=== PATIENT | female | born 1965 | race Hispanic/Latino ===

== ENCOUNTER 2017-11-19 21:31 | Emergency (ER) | payer BC, MEDICAID ==
[2017-11-19] MEDS ORDERED: PHENAZOPYRIDINE HCL 200 MG TABLET ONE (21:59)
[2017-11-19 22:03] LABS: BILIRUBIN,URINE NEGATIVE (NEGATIVE); GLUCOSE, URINE (UA) NEGATIVE (NEGATIVE); KETONES,URINE NEGATIVE (NEGATIVE); LEUKOCYTE ESTERASE ,URINE SMALL (NEGATIVE); NITRATE,URINE NEGATIVE (NEGATIVE); OCCULT BLOOD,URINE LARGE (NEGATIVE); PH,URINE 5.5 (5.0-8.0); PROTEIN,URINE 100 (NEGATIVE); UROBILINOGEN,URINE 0.2 mg/dL (0.2-1.0)
[2017-11-19 22:04] LABS: APPEARANCE,URINE TURBID (CLEAR); COLOR,URINE RED (YELLOW)
[2017-11-19 22:09] LABS: RBC,URINE TNTC /HPF (0-1)
[2017-11-19 22:10] LABS: BACTERIA,URINE Rare /HPF (None Seen); SQUAMOUS EPITHELIAL CELL,UR Rare /LPF (0-2)
[2017-11-19] MEDS ORDERED: CEFTRIAXONE SODIUM 1 GM ONE (22:21)
[2017-11-19] MEDS ORDERED: LIDOCAINE HCL-MPF 1% 2ML VIAL ONE (22:21)
== END 2017-11-19 22:49 | disposition home or self-care (01) ==
LOC: EDH 21:31
DX: N39.0 Urinary tract infection, site not specified (principal); F32.9 Major depressive disorder, single episode, unspecified; I10 Essential (primary) hypertension; E78.5 Hyperlipidemia, unspecified; Z98.890 Other specified postprocedural states
CPT/HCPCS: 81001; 96372; 99283; J0696; J3490

== ENCOUNTER → 2018-07-19 | Outpatient (CLI) | payer BC, MEDICAID | END | disposition home or self-care (01) | LOC: SLP 19:01 | DX: G47.30 Sleep apnea, unspecified (principal) | CPT/HCPCS: 95811 ==

== ENCOUNTER 2018-08-23 17:24 | Emergency (ER) | payer BC, MEDICAID ==
[2018-08-23] MEDS ORDERED: HYOSCYAMINE SULFATE 0.125 MG TAB.SUBL SL ONE (18:21)
[2018-08-23 18:26] LABS: BASOPHILS % (AUTO) 0.4 % (0.0-5.0); EOSINOPHILS % (AUTO) 0.1 % (0.0-8.0); LYMPHOCYTES % (AUTO) 14.7 % (21.0-51.0); MEAN CORPUSCULAR HEMOGLOBIN 32.4 pg (27.0-33.0); MEAN CORPUSCULAR HGB CONC 33.6 g/dL (32.0-36.0); MEAN CORPUSCULAR VOLUME 96.3 fL (79-99); MONOCYTES % (AUTO) 4.7 % (3.0-13.0); NEUTROPHILS % (AUTO) 80.1 % (40.0-77.0); PLATELET COUNT (AUTO) 229 K/uL (130-400); RED BLOOD CELL COUNT(AUTO) 4.15 MIL/uL (4.00-5.50); RED CELL DISTRIBUTION WIDTH 13.5 % (11.0-15.5); WHITE BLOOD COUNT (AUTO) 11.9 K/uL (4.8-10.8)
[2018-08-23 18:29] LABS: APPEARANCE,URINE Clear (CLEAR); BILIRUBIN,URINE Negative (NEGATIVE); COLOR,URINE Yellow (YELLOW); GLUCOSE, URINE (UA) Negative (NEGATIVE); KETONES,URINE Trace mg/dL (NEGATIVE); LEUKOCYTE ESTERASE ,URINE Negative (NEGATIVE); NITRATE,URINE Negative (NEGATIVE); OCCULT BLOOD,URINE Small (NEGATIVE); PH,URINE 5.5 (5.0-8.0); PROTEIN,URINE Trace (NEGATIVE); UROBILINOGEN,URINE 0.2 mg/dL (0.2-1.0)
[2018-08-23 18:37] LABS: AMPHET/METH SCREEN,URINE NEGATIVE (NEGATIVE); BARBITURATE SCREEN, URINE NEGATIVE (NEGATIVE); BENZODIAZEPINES SCREEN,URINE NEGATIVE (NEGATIVE); CANNABINOID SCREEN,URINE NEGATIVE (NEGATIVE); COCAINE SCREEN,URINE NEGATIVE (NEGATIVE); OPIATE SCREEN,URINE NEGATIVE (NEGATIVE); PHENCYCLIDINE SCREEN,URINE NEGATIVE (NEGATIVE)
[2018-08-23 18:38] LABS: CREATININE 0.9 mg/dL (0.5-1.5); POTASSIUM 3.4 mmol/L (3.5-5.1)
[2018-08-23 18:42] LABS: ALBUMIN 3.5 g/dL (3.5-5.0); BILIRUBIN,TOTAL 0.5 mg/dL (0.2-1.0); TOTAL PROTEIN, SERUM 8.2 g/dL (6.0-8.3)
[2018-08-23 18:52] LABS: BACTERIA,URINE Rare /HPF (None Seen); RBC,URINE 0-1 /HPF (0-1); SQUAMOUS EPITHELIAL CELL,UR Rare /HPF (0-2)
[2018-08-23] MEDS ORDERED: LEVOFLOXACIN 500 MG TABLET ONE (18:58)
== END 2018-08-23 19:36 | disposition home or self-care (01) ==
LOC: EDH 17:24
DX: A09 Infectious gastroenteritis and colitis, unspecified (principal); M25.561 Pain in right knee; M25.562 Pain in left knee; F41.9 Anxiety disorder, unspecified; F32.9 Major depressive disorder, single episode, unspecified; E78.5 Hyperlipidemia, unspecified; I10 Essential (primary) hypertension; H92.09 Otalgia, unspecified ear; Z88.6 Allergy status to analgesic agent
CPT/HCPCS: 36415; 73562; 80053; 80305; 81001; 82150; 82270; 83630; 83690; 85025; 87046

== ENCOUNTER 2019-02-25 19:33 | Emergency (ER) | payer BC, MEDICAID ==
[2019-02-25 20:23] LABS: BASOPHILS % (AUTO) 0.7 % (0.0-5.0); EOSINOPHILS % (AUTO) 1.1 % (0.0-8.0); HEMATOCRIT 33.7 % (36-48); LYMPHOCYTES % (AUTO) 44.1 % (21.0-51.0); MEAN CORPUSCULAR HEMOGLOBIN 33.5 pg (27.0-33.0); MEAN CORPUSCULAR HGB CONC 34.9 g/dL (32.0-36.0); MEAN CORPUSCULAR VOLUME 95.8 fL (79-99); MONOCYTES % (AUTO) 14.4 % (3.0-13.0); NEUTROPHILS % (AUTO) 39.7 % (40.0-77.0); NUCLEATED RED BLOOD CELLS 0.2 % (0.0-0.19); PLATELET COUNT (AUTO) 256 K/uL (130-400); RED BLOOD CELL COUNT(AUTO) 3.52 MIL/uL (4.00-5.50); RED CELL DISTRIBUTION WIDTH 12.9 % (11.0-15.5); WHITE BLOOD COUNT (AUTO) 5.5 K/uL (4.8-10.8)
[2019-02-25 20:31] LABS: APPEARANCE,URINE Clear (CLEAR); BILIRUBIN,URINE Negative (NEGATIVE); COLOR,URINE Yellow (YELLOW); GLUCOSE, URINE (UA) Negative (NEGATIVE); KETONES,URINE Negative (NEGATIVE); LEUKOCYTE ESTERASE ,URINE Moderate (NEGATIVE); NITRATE,URINE Negative (NEGATIVE); OCCULT BLOOD,URINE Trace (NEGATIVE); PROTEIN,URINE Negative (NEGATIVE)
[2019-02-25 20:38] LABS: CREATININE 0.8 mg/dL (0.5-1.5); POTASSIUM 3.5 mmol/L (3.5-5.1)
[2019-02-25 20:40] LABS: INR 0.9 (0.85-1.15); PARTIAL THROMBOPLASTIN TIME 24.5 SEC (26.3-35.5); PROTHROMBIN TIME 9.5 SEC (9.6-11.6)
[2019-02-25 20:48] LABS: ALBUMIN 3.6 g/dL (3.5-5.0); BILIRUBIN,TOTAL 0.2 mg/dL (0.2-1.0); TOTAL PROTEIN, SERUM 7.3 g/dL (6.0-8.3)
[2019-02-25] MEDS ORDERED: LIDOCAINE 5% TOPICAL PATCH TP ONE (20:51)
[2019-02-25 21:02] LABS: RBC,URINE 0-1 /HPF (0-1)
[2019-02-25 21:03] LABS: BACTERIA,URINE Rare /HPF (None Seen); SQUAMOUS EPITHELIAL CELL,UR Few /HPF (0-2); TRANSITIONAL EPI CELLS,URINE Rare /HPF (None Seen)
[2019-02-25] MEDS ORDERED: SUCRALFATE 1 GM TABLET ONE (21:58)
[2019-02-25] MEDS ORDERED: FAMOTIDINE/PF 20 MG/2 ML VIAL IV ONE (21:58)
== END 2019-02-25 23:43 | disposition home or self-care (01) ==
LOC: EDH 19:33
DX: R07.89 Other chest pain (principal); R06.02 Shortness of breath; E78.5 Hyperlipidemia, unspecified; F41.9 Anxiety disorder, unspecified; F32.9 Major depressive disorder, single episode, unspecified; Z88.6 Allergy status to analgesic agent; Z98.890 Other specified postprocedural states
CPT/HCPCS: 36415; 71045; 80053; 81001; 82550 ×2; 83874; 84484 ×2; 85025; 85378; 85610; 85730; 93005 ×2; 96374; 99285; J3490

== ENCOUNTER 2020-02-08 07:58 | Emergency (ER) | payer BC, MEDICAID ==
[2020-02-08 10:16] LABS: BASOPHILS % (AUTO) 1.1 % (0.0-5.0); EOSINOPHILS % (AUTO) 1.8 % (0.0-8.0); HEMATOCRIT 35.7 % (36-48); LYMPHOCYTES % (AUTO) 44.1 % (21.0-51.0); MEAN CORPUSCULAR HEMOGLOBIN 31.7 pg (27.0-33.0); MEAN CORPUSCULAR HGB CONC 33.1 g/dL (32.0-36.0); MONOCYTES % (AUTO) 9.3 % (3.0-13.0); NEUTROPHILS % (AUTO) 43.5 % (40.0-77.0); PLATELET COUNT (AUTO) 234 K/uL (130-400); RED BLOOD CELL COUNT(AUTO) 3.72 MIL/uL (4.00-5.50); RED CELL DISTRIBUTION WIDTH 12.8 % (11.0-15.5); WHITE BLOOD COUNT (AUTO) 5.6 K/uL (4.8-10.8)
[2020-02-08 10:29] LABS: CREATININE 0.7 mg/dL (0.5-1.5); POTASSIUM 3.5 mmol/L (3.5-5.1)
[2020-02-08 10:35] LABS: ALBUMIN 3.8 g/dL (3.5-5.0); BILIRUBIN,TOTAL 0.2 mg/dL (0.2-1.0); TOTAL PROTEIN, SERUM 7.2 g/dL (6.0-8.3)
[2020-02-08 10:47] LABS: B-TYPE NATRIURETIC PEPTIDE 10 pg/mL (0-100)
[2020-02-08 10:56] LABS: APPEARANCE,URINE Clear (CLEAR); BILIRUBIN,URINE Negative (NEGATIVE); COLOR,URINE Yellow (YELLOW); GLUCOSE, URINE (UA) Negative (NEGATIVE); KETONES,URINE Negative (NEGATIVE); LEUKOCYTE ESTERASE ,URINE Negative (NEGATIVE); NITRATE,URINE Negative (NEGATIVE); OCCULT BLOOD,URINE Negative (NEGATIVE); PH,URINE 6.5 (5.0-8.0); PROTEIN,URINE Negative (NEGATIVE); UROBILINOGEN,URINE 0.2 mg/dL (0.2-1.0)
== END 2020-02-08 12:47 | disposition home or self-care (01) ==
LOC: EDH 07:58
DX: G93.3 Postviral and related fatigue syndromes (principal); R06.2 Wheezing; J98.01 Acute bronchospasm; Z20.828 Contact with and (suspected) exposure to other viral communicable diseases; F41.9 Anxiety disorder, unspecified; F32.9 Major depressive disorder, single episode, unspecified; E78.5 Hyperlipidemia, unspecified; I10 Essential (primary) hypertension; G47.30 Sleep apnea, unspecified; Z98.890 Other specified postprocedural states; Z88.6 Allergy status to analgesic agent
CPT/HCPCS: 36415; 71045; 80053; 81003; 83880; 85025; 87635

== ENCOUNTER 2020-03-27 14:15 | Emergency (ER) | payer MEDICAID ==
[2020-03-27] MEDS ORDERED: ACETAMINOPHEN 325 MG TAB ONE (15:26)
[2020-03-27] MEDS ORDERED: ONDANSETRON ODT 4 MG TAB ONE (15:26)
== END 2020-03-27 16:16 | disposition home or self-care (01) ==
LOC: EDH 14:15
DX: S00.03XA Contusion of scalp, initial encounter (principal); R11.0 Nausea; F41.9 Anxiety disorder, unspecified; F32.9 Major depressive disorder, single episode, unspecified; I10 Essential (primary) hypertension; E78.5 Hyperlipidemia, unspecified; Z88.6 Allergy status to analgesic agent; Z98.890 Other specified postprocedural states; W18.09XA Striking against other object with subsequent fall, initial encounter; Y93.89 Activity, other specified; Y92.89 Other specified places as the place of occurrence of the external cause; Y99.8 Other external cause status
CPT/HCPCS: 70450

== ENCOUNTER 2020-04-13 16:00 | Emergency (ER) | payer MEDICAID ==
[2020-04-13] MEDS ORDERED: BISACODYL 10 MG SUPP.RECT RC ONE (17:20)
[2020-04-13] MEDS ORDERED: FAMOTIDINE 20MG TAB 20 MG TAB ONE (18:44)
[2020-04-13] MEDS ORDERED: SUCRALFATE 1 GM TABLET ONE (18:44)
[2020-04-13] MEDS ORDERED: ACETAMINOPHEN 325 MG TAB ONE (18:47)
== END 2020-04-13 23:44 | disposition home or self-care (01) ==
LOC: EDH 16:00
DX: K59.00 Constipation, unspecified (principal); K62.89 Other specified diseases of anus and rectum; F41.9 Anxiety disorder, unspecified; F32.9 Major depressive disorder, single episode, unspecified; I10 Essential (primary) hypertension; E78.5 Hyperlipidemia, unspecified; Z98.890 Other specified postprocedural states; Z88.6 Allergy status to analgesic agent

== ENCOUNTER 2020-04-26 11:56 | Emergency (ER) | payer MEDICAID ==
[2020-04-26 15:45] LABS: BASOPHILS % (AUTO) 0.3 % (0.0-5.0); HEMATOCRIT 39.7 % (36-48); LYMPHOCYTES % (AUTO) 32.5 % (21.0-51.0); MEAN CORPUSCULAR HEMOGLOBIN 32.4 pg (27.0-33.0); MEAN CORPUSCULAR HGB CONC 33.8 g/dL (32.0-36.0); MEAN CORPUSCULAR VOLUME 95.9 fL (79-99); MONOCYTES % (AUTO) 8.4 % (3.0-13.0); NEUTROPHILS % (AUTO) 58.6 % (40.0-77.0); PLATELET COUNT (AUTO) 196 K/uL (130-400); RED BLOOD CELL COUNT(AUTO) 4.14 MIL/uL (4.00-5.50); RED CELL DISTRIBUTION WIDTH 12.3 % (11.0-15.5); WHITE BLOOD COUNT (AUTO) 5.8 K/uL (4.8-10.8)
[2020-04-26 15:58] LABS: CREATININE 0.6 mg/dL (0.5-1.5); POTASSIUM 3.7 mmol/L (3.5-5.1)
[2020-04-26 16:03] LABS: ALBUMIN 3.9 g/dL (3.5-5.0); BILIRUBIN,TOTAL 0.5 mg/dL (0.2-1.0); TOTAL PROTEIN, SERUM 8.4 g/dL (6.0-8.3)
== END 2020-04-26 17:27 | disposition home or self-care (01) ==
LOC: EDH 11:56
DX: U07.1 COVID-19 (principal); J12.89 Other viral pneumonia; R05 Cough; F41.9 Anxiety disorder, unspecified; F32.9 Major depressive disorder, single episode, unspecified; E78.5 Hyperlipidemia, unspecified; I10 Essential (primary) hypertension; Z98.890 Other specified postprocedural states; Z88.6 Allergy status to analgesic agent
CPT/HCPCS: 36415; 71045; 80053; 84484; 85025; 93005; 99285; U0003

== ENCOUNTER 2020-08-09 13:52 | Emergency (ER) | payer MEDICAID ==
[2020-08-09 14:33] LABS: BASOPHILS % (AUTO) 0.9 % (0.0-5.0); EOSINOPHILS % (AUTO) 1.3 % (0.0-8.0); HEMATOCRIT 36.9 % (36-48); LYMPHOCYTES % (AUTO) 48.2 % (21.0-51.0); MEAN CORPUSCULAR HEMOGLOBIN 31.5 pg (27.0-33.0); MEAN CORPUSCULAR HGB CONC 32.8 g/dL (32.0-36.0); MEAN CORPUSCULAR VOLUME 96.1 fL (79-99); MONOCYTES % (AUTO) 10.8 % (3.0-13.0); NEUTROPHILS % (AUTO) 38.6 % (40.0-77.0); PLATELET COUNT (AUTO) 258 K/uL (130-400); RED BLOOD CELL COUNT(AUTO) 3.84 MIL/uL (4.00-5.50); RED CELL DISTRIBUTION WIDTH 12.7 % (11.0-15.5); WHITE BLOOD COUNT (AUTO) 5.6 K/uL (4.8-10.8)
[2020-08-09 14:50] LABS: CREATININE 0.6 mg/dL (0.5-1.5); POTASSIUM 3.7 mmol/L (3.5-5.1)
[2020-08-09 14:53] LABS: INR 0.92 (0.85-1.15); PARTIAL THROMBOPLASTIN TIME 24.7 SEC (26.3-35.5)
[2020-08-09 14:55] LABS: ALBUMIN 3.9 g/dL (3.5-5.0); BILIRUBIN,TOTAL 0.3 mg/dL (0.2-1.0); TOTAL PROTEIN, SERUM 7.6 g/dL (6.0-8.3)
[2020-08-09] MEDS ORDERED: MECLIZINE HCL 25 MG TABLET ONE (16:14)
[2020-08-09 16:15] LABS: APPEARANCE,URINE Clear (CLEAR); BILIRUBIN,URINE Negative (NEGATIVE); COLOR,URINE Yellow (YELLOW); GLUCOSE, URINE (UA) Negative (NEGATIVE); KETONES,URINE Negative (NEGATIVE); LEUKOCYTE ESTERASE ,URINE Negative (NEGATIVE); NITRATE,URINE Negative (NEGATIVE); OCCULT BLOOD,URINE Negative (NEGATIVE); PROTEIN,URINE Negative (NEGATIVE)
== END 2020-08-09 17:11 | disposition home or self-care (01) ==
LOC: EDH 13:52
DX: R42 Dizziness and giddiness (principal); F41.9 Anxiety disorder, unspecified; F32.9 Major depressive disorder, single episode, unspecified; E78.5 Hyperlipidemia, unspecified; I10 Essential (primary) hypertension; Z98.890 Other specified postprocedural states; Z88.6 Allergy status to analgesic agent
CPT/HCPCS: 36415; 70450; 71045; 80053; 81003; 81025; 84484; 85025; 85610; 85730; 93005

== ENCOUNTER 2020-12-04 05:30 | Observation (INO) | payer MEDICAID ==
[2020-11-29 13:15] LABS: BASOPHILS % (AUTO) 0.7 % (0.0-5.0); EOSINOPHILS % (AUTO) 1.2 % (0.0-8.0); HEMATOCRIT 40.3 % (36-48); LYMPHOCYTES % (AUTO) 45.8 % (21.0-51.0); MEAN CORPUSCULAR HEMOGLOBIN 31.9 pg (27.0-33.0); MEAN CORPUSCULAR VOLUME 96.6 fL (79-99); MONOCYTES % (AUTO) 7.7 % (3.0-13.0); NEUTROPHILS % (AUTO) 44.4 % (40.0-77.0); PLATELET COUNT (AUTO) 249 K/uL (130-400); RED BLOOD CELL COUNT(AUTO) 4.17 MIL/uL (4.00-5.50); RED CELL DISTRIBUTION WIDTH 13.4 % (11.0-15.5); WHITE BLOOD COUNT (AUTO) 6.1 K/uL (4.8-10.8)
[2020-12-03 12:01] VITALS: BP 140/77
[~2020-12-04] VITALS: Ht 149.9 cm; Wt 79.2 kg
[2020-12-04] VITALS (22 sets, daily range): BP systolic 104–142; BP diastolic 60–92
[2020-12-04] MEDS ORDERED: LACTATED RINGERS 1000ML 1,000 ML IV ONE (06:10)
[2020-12-04] MEDS: CEFAZOLIN SODIUM 1 GM VIAL ONE ×2 (06:16→08:59)
[2020-12-04] MEDS ORDERED: ATOR40TA69 PO (07:21)
[2020-12-04] MEDS ORDERED: LORA2TAB80 PO (07:21)
[2020-12-04] MEDS ORDERED: OMEP20CA12 PO (07:21)
[2020-12-04] MEDS ORDERED: LIDOCAINE PF 2% 5ML ABBOJECT ONE ×2 (07:51→07:53)
[2020-12-04] MEDS ORDERED: SUCCINYLCHOLINE CHLORIDE 20 MG/ML 10 ML VIAL ONE ×2 (07:51→07:53)
[2020-12-04] MEDS ORDERED: FENTANYL CITRATE PF 50 MCG/1 ML 2ML VIAL ONE (07:52)
[2020-12-04] MEDS ORDERED: PROPOFOL 10 MG/ML 20ML VIAL IV ONE (07:52)
[2020-12-04] MEDS ORDERED: MIDAZOLAM HCL 1 MG/ML 2ML VIAL ONE (07:52)
[2020-12-04] MEDS ORDERED: ROCURONIUM 10MG/1ML SYR 10 MG/ML ML ONE (07:52)
[2020-12-04] MEDS ORDERED: ONDANSETRON HCL 4 MG/2 ML VIAL ONE (07:52)
[2020-12-04] MEDS ORDERED: GLYCOPYRROLATE 1 MG/5 ML SYRINGE ONE (07:52)
[2020-12-04] MEDS ORDERED: NEOSTIGMINE 5MG/5ML SYR IV ONE (07:52)
[2020-12-04] MEDS ORDERED: ZINC50TA64 PO (08:01)
[2020-12-04] MEDS ORDERED: SERT-439 PO (08:01)
[2020-12-04] MEDS ORDERED: FLUT15.845 NS (08:01)
[2020-12-04] MEDS ORDERED: P-EP-642 PO (08:01)
[2020-12-04] MEDS ORDERED: PREG50 PO (08:01)
[2020-12-04] MEDS ORDERED: HYDR-4068 PO (08:01)
[2020-12-04] MEDS ORDERED: ASCO500C18 PO (08:01)
[2020-12-04] MEDS ORDERED: MONT10TA21 PO (08:01)
[2020-12-04] MEDS ORDERED: MEPERIDINE-PF 25 MG/ML SYG ONE ×3 (09:27→11:29)
[2020-12-04] MEDS ORDERED: ONDANSETRON HCL 4 MG/2 ML VIAL IVP PRN (12:45)
[2020-12-04] MEDS ORDERED: MEPERIDINE-PF 75 MG/ML SYG IM PRN (12:45)
[2020-12-04] MEDS ORDERED: PROMETHAZINE HCL 25 MG/ML 1ML AMPULE IM PRN ×2 (12:45)
[2020-12-04] MEDS ORDERED: DOCUSATE SODIUM 100 MG CAP PO PRN (12:45)
[2020-12-04] MEDS ORDERED: BISACODYL 10 MG SUPP.RECT RC PRN (12:45)
[2020-12-04] MEDS: DEXTROSE 5 %-0.45 % NACL 1,000 ML IV PRN ×2 (14:36→21:57)
[2020-12-04] MEDS: SIMETHICONE 80 MG TAB.CHEW PO PRN (22:07)
[2020-12-04] MEDS: ACETAMINOPHEN-CODEINE 300/30MG TAB PO PRN (22:08)
[2020-12-05 03:55] VITALS: BP 112/69
[2020-12-05] MEDS: ACETAMINOPHEN-CODEINE 300/30MG TAB PO PRN ×2 (04:38→11:17)
[2020-12-05] MEDS: DEXTROSE 5 %-0.45 % NACL 1,000 ML IV PRN (06:00)
[2020-12-05 06:22] LABS: HEMATOCRIT 34.2 % (36-48); MEAN CORPUSCULAR HEMOGLOBIN 31.8 pg (27.0-33.0); MEAN CORPUSCULAR HGB CONC 33.3 g/dL (32.0-36.0); MEAN CORPUSCULAR VOLUME 95.3 fL (79-99); RED BLOOD CELL COUNT(AUTO) 3.59 MIL/uL (4.00-5.50); RED CELL DISTRIBUTION WIDTH 12.9 % (11.0-15.5); WHITE BLOOD COUNT (AUTO) 9.3 K/uL (4.8-10.8)
[2020-12-05 07:21] VITALS: BP 127/71
[2020-12-05] MEDS: SIMETHICONE 80 MG TAB.CHEW PO PRN (08:58)
[2020-12-05] MEDS ORDERED: ACET1TAB25 PO (11:31)
== END 2020-12-05 13:10 | disposition home or self-care (01) ==
LOC: DAH 05:30 → WSH 05:31 → DAH 10:00 → WSH 12:05
PROVIDERS: ADMIT Obstetrics & Gynecology; ATTEND Obstetrics & Gynecology
DX: N95.0 Postmenopausal bleeding (principal); Z20.822 Contact with and (suspected) exposure to COVID-19; D25.9 Leiomyoma of uterus, unspecified; N83.201 Unspecified ovarian cyst, right side; M48.02 Spinal stenosis, cervical region; Z98.51 Tubal ligation status
CPT/HCPCS: 36415 ×3; 58552; 85025; 85027; 86850 ×2; 86900 ×2; 86901 ×2; 88307; 96360; 96361 ×2; 96372; A4213; A4215 ×2; A4221; A4222; A4223 ×2; A4344; A4351; A4600; A4649 ×2; A4663; A4930 ×2; A6260; C1769 ×2; C9803 ×2; G0378 ×30; J0330 ×2; J0690; J2001 ×2; J2175 ×4; J2250; J2405; J2550; J2704; J2710; J3010; J3490; J7030 ×2; J7120; U0003 ×2

== ENCOUNTER 2021-08-12 11:15 | Emergency (ER) | payer MEDICAID ==
[~2021-08-12] VITALS: Ht 149.9 cm; Wt 77.1 kg
[~2021-08-12 11:15] MED LIST: ACET1TAB25 PO; ASCO500C18 PO; ATOR40TA69 PO; FLUT15.845 NS; HYDR-4068 PO; LORA2TAB80 PO; MONT10TA21 PO; OMEP20CA12 PO; P-EP-642 PO; PREG50 PO; SERT-439 PO; ZINC50TA64 PO
[2021-08-12 11:19] VITALS: BP 130/83
== END 2021-08-12 12:56 | disposition home or self-care (01) ==
LOC: EDH 11:15
DX: B34.9 Viral infection, unspecified (principal); J02.9 Acute pharyngitis, unspecified; Z20.822 Contact with and (suspected) exposure to COVID-19; F41.9 Anxiety disorder, unspecified; Z88.6 Allergy status to analgesic agent; Z88.8 Allergy status to other drugs, medicaments and biological substances; Z79.899 Other long term (current) drug therapy
CPT/HCPCS: 87635; 87804 ×2; 87880; 99283; C9803

== ENCOUNTER 2021-11-01 14:47 | Emergency (ER) | payer MEDICAID ==
[~2021-11-01] VITALS: Ht 149.9 cm; Wt 76.7 kg
[2021-11-01] MEDS ORDERED: D-ME1POW16 PO (15:34)
[2021-11-01] MEDS ORDERED: NIRM1TAB PO (15:34)
[2021-11-01 15:59] LABS: INFLUENZA TYPE A NEGATIVE FOR TYPE A (NEG); INFLUENZA TYPE B NEGATIVE FOR TYPE B (NEG)
[2021-11-01 16:19] VITALS: BP 121/74
== END 2021-11-01 16:21 | disposition home or self-care (01) ==
LOC: EDH 14:47
DX: J06.9 Acute upper respiratory infection, unspecified (principal); R05.9 Cough, unspecified; Z20.822 Contact with and (suspected) exposure to COVID-19; J45.909 Unspecified asthma, uncomplicated; Z98.890 Other specified postprocedural states; Z88.6 Allergy status to analgesic agent; Z79.899 Other long term (current) drug therapy
CPT/HCPCS: 87635; 87804 ×2; 99283; C9803

== ENCOUNTER 2022-01-11 19:45 | Emergency (ER) | payer MEDICAID ==
[~2022-01-11] VITALS: Ht 149.9 cm; Wt 76.2 kg
[~2022-01-11 19:45] MED LIST changes: +ACET-2079 PO; -ACET1TAB25 PO; +D-ME1POW16 PO; +NIRM1TAB PO
[2022-01-11 20:35] LABS: BASOPHILS % (AUTO) 0.1 % (0.0-5.0); HEMATOCRIT 34.9 % (36-48); LYMPHOCYTES % (AUTO) 14.8 % (21.0-51.0); MEAN CORPUSCULAR HEMOGLOBIN 31.2 pg (27.0-33.0); MEAN CORPUSCULAR HGB CONC 33.2 g/dL (32.0-36.0); MEAN CORPUSCULAR VOLUME 93.8 fL (79-99); MONOCYTES % (AUTO) 7.9 % (3.0-13.0); NEUTROPHILS % (AUTO) 76.7 % (40.0-77.0); PLATELET COUNT (AUTO) 233 K/uL (130-400); RED BLOOD CELL COUNT(AUTO) 3.72 MIL/uL (4.00-5.50); RED CELL DISTRIBUTION WIDTH 12.6 % (11.0-15.5); WHITE BLOOD COUNT (AUTO) 17.1 K/uL (4.8-10.8)
[2022-01-11 20:36] LABS: APPEARANCE,URINE Clear (CLEAR); BILIRUBIN,URINE Negative (NEGATIVE); COLOR,URINE Yellow (YELLOW); GLUCOSE, URINE (UA) Negative (NEGATIVE); KETONES,URINE Negative (NEGATIVE); LEUKOCYTE ESTERASE ,URINE Negative (NEGATIVE); NITRATE,URINE Negative (NEGATIVE); OCCULT BLOOD,URINE Negative (NEGATIVE); PROTEIN,URINE Negative (NEGATIVE); UROBILINOGEN,URINE 0.2 mg/dL (0.2-1.0)
[2022-01-11 20:43] LABS: CREATININE 0.6 mg/dL (0.5-1.5); POTASSIUM 3.7 mmol/L (3.5-5.1)
[2022-01-11 20:48] LABS: ALBUMIN 3.9 g/dL (3.5-5.0); BILIRUBIN,TOTAL 0.2 mg/dL (0.2-1.0); TOTAL PROTEIN, SERUM 7.6 g/dL (6.0-8.3)
[2022-01-12] VITALS: BP 118/58
[2022-01-12] MEDS ORDERED: ACETAMINOPHEN 500 MG TABLET ONE (00:54)
[2022-01-12] MEDS ORDERED: ACETAMINOPHEN 500 MG TABLET PO ONE (01:00)
== END 2022-01-12 01:15 | disposition home or self-care (01) ==
LOC: EDH 19:45
DX: B34.9 Viral infection, unspecified (principal); Z20.822 Contact with and (suspected) exposure to COVID-19; G47.30 Sleep apnea, unspecified; Z88.6 Allergy status to analgesic agent; Z79.899 Other long term (current) drug therapy
CPT/HCPCS: 36415; 71046; 74176; 80053; 81003; 82550; 83605; 84145; 84484; 85025; 85651; 87635; 87804 ×2; 87880; 93005; 99285; C9803

== ENCOUNTER 2022-02-25 14:14 | Emergency (ER) | payer MEDICAID ==
[~2022-02-25] VITALS: Ht 149.9 cm; Wt 73.5 kg
[2022-02-25 14:18] VITALS: BP 117/69
[2022-02-25 15:29] LABS: APPEARANCE,URINE Clear (CLEAR); BILIRUBIN,URINE Negative (NEGATIVE); COLOR,URINE Yellow (YELLOW); GLUCOSE, URINE (UA) Negative (NEGATIVE); KETONES,URINE Trace mg/dL (NEGATIVE); LEUKOCYTE ESTERASE ,URINE Trace (NEGATIVE); NITRATE,URINE Negative (NEGATIVE); OCCULT BLOOD,URINE Negative (NEGATIVE); PROTEIN,URINE Negative (NEGATIVE); UROBILINOGEN,URINE 0.2 mg/dL (0.2-1.0)
[2022-02-25 15:30] LABS: BASOPHILS % (AUTO) 0.9 % (0.0-5.0); EOSINOPHILS % (AUTO) 1.1 % (0.0-8.0); HEMATOCRIT 38.8 % (36-48); LYMPHOCYTES % (AUTO) 36.8 % (21.0-51.0); MEAN CORPUSCULAR HEMOGLOBIN 30.9 pg (27.0-33.0); MEAN CORPUSCULAR HGB CONC 32.7 g/dL (32.0-36.0); MEAN CORPUSCULAR VOLUME 94.4 fL (79-99); MONOCYTES % (AUTO) 7.9 % (3.0-13.0); NEUTROPHILS % (AUTO) 53.2 % (40.0-77.0); PLATELET COUNT (AUTO) 260 K/uL (130-400); RED BLOOD CELL COUNT(AUTO) 4.11 MIL/uL (4.00-5.50); RED CELL DISTRIBUTION WIDTH 12.3 % (11.0-15.5); WHITE BLOOD COUNT (AUTO) 7.5 K/uL (4.8-10.8)
[2022-02-25 15:42] LABS: BACTERIA,URINE Few /HPF (None Seen); MUCUS,URINE Few LPF (None Seen); RBC,URINE 0-1 /HPF (0-1); SQUAMOUS EPITHELIAL CELL,UR Few /HPF (0-2)
[2022-02-25 16:00] LABS: CREATININE 0.6 mg/dL (0.5-1.5); POTASSIUM 3.4 mmol/L (3.5-5.1)
[2022-02-25 16:04] LABS: ALBUMIN 4.2 g/dL (3.5-5.0); BILIRUBIN,TOTAL 0.3 mg/dL (0.2-1.0); TOTAL PROTEIN, SERUM 7.9 g/dL (6.0-8.3)
[2022-02-25] MEDS ORDERED: ONDANSETRON 4MG INJ IVP ONE (17:00)
[2022-02-25] MEDS ORDERED: IOHEXOL-350 75 ML VIAL IV ONE (17:25)
== END 2022-02-25 18:41 | disposition home or self-care (01) ==
LOC: EDH 14:14
DX: K59.00 Constipation, unspecified (principal); Z88.6 Allergy status to analgesic agent; Z79.899 Other long term (current) drug therapy
CPT/HCPCS: 36415; 74177; 80053; 81001; 85025; 99285; Q9967

== ENCOUNTER 2022-05-24 05:19 | Emergency (ER) | payer OTHER, MEDICAID ==
[~2022-05-24] VITALS: Ht 149.9 cm; Wt 73.0 kg
[2022-05-24 05:39] LABS: EOSINOPHILS % (AUTO) 1.8 % (0.0-8.0); HEMATOCRIT 38.2 % (36-48); MEAN CORPUSCULAR HEMOGLOBIN 31.7 pg (27.0-33.0); MEAN CORPUSCULAR HGB CONC 33.8 g/dL (32.0-36.0); MEAN CORPUSCULAR VOLUME 93.9 fL (79-99); MONOCYTES % (AUTO) 8.4 % (3.0-13.0); NEUTROPHILS % (AUTO) 39.7 % (40.0-77.0); PLATELET COUNT (AUTO) 278 K/uL (130-400); RED BLOOD CELL COUNT(AUTO) 4.07 MIL/uL (4.00-5.50); RED CELL DISTRIBUTION WIDTH 12.5 % (11.0-15.5); WHITE BLOOD COUNT (AUTO) 7.2 K/uL (4.8-10.8)
[2022-05-24 05:55] LABS: CREATININE 0.6 mg/dL (0.5-1.5); POTASSIUM 3.7 mmol/L (3.5-5.1)
[2022-05-24 05:59] LABS: ALBUMIN 4.3 g/dL (3.5-5.0); TOTAL PROTEIN, SERUM 7.7 g/dL (6.0-8.3)
[2022-05-24 06:30] VITALS: BP 110/76
[2022-05-24] MEDS ORDERED: KETOROLAC 15MG/ML VIAL (15MG/ML) IV ONE (06:30)
== END 2022-05-24 06:58 | disposition home or self-care (01) ==
LOC: EDH 05:19
DX: R07.89 Other chest pain (principal); M25.512 Pain in left shoulder; F41.9 Anxiety disorder, unspecified; E78.00 Pure hypercholesterolemia, unspecified; G47.30 Sleep apnea, unspecified; J45.909 Unspecified asthma, uncomplicated; Z88.5 Allergy status to narcotic agent; Z88.6 Allergy status to analgesic agent; Z88.8 Allergy status to other drugs, medicaments and biological substances; Z79.1 Long term (current) use of non-steroidal anti-inflammatories (NSAID); Z79.899 Other long term (current) drug therapy
CPT/HCPCS: 99285; 96374; 71045; 84484; 80053; 85025; 36415; 93005; J1885

== ENCOUNTER 2022-08-04 14:28 | Emergency (ER) | payer OTHER, MEDICAID ==
[2022-08-04 14:29] VITALS: BP 107/63
[2022-08-04 14:56] LABS: BASOPHILS % (AUTO) 0.8 % (0.0-5.0); EOSINOPHILS % (AUTO) 0.7 % (0.0-8.0); HEMATOCRIT 35.9 % (36-48); LYMPHOCYTES % (AUTO) 27.2 % (21.0-51.0); MEAN CORPUSCULAR HEMOGLOBIN 31.5 pg (27.0-33.0); MEAN CORPUSCULAR HGB CONC 34.3 g/dL (32.0-36.0); MEAN CORPUSCULAR VOLUME 91.8 fL (79-99); MONOCYTES % (AUTO) 6.4 % (3.0-13.0); NEUTROPHILS % (AUTO) 64.8 % (40.0-77.0); PLATELET COUNT (AUTO) 234 K/uL (130-400); RED BLOOD CELL COUNT(AUTO) 3.91 MIL/uL (4.00-5.50); RED CELL DISTRIBUTION WIDTH 12.4 % (11.0-15.5); WHITE BLOOD COUNT (AUTO) 7.5 K/uL (4.8-10.8)
[2022-08-04] MEDS ORDERED: MAG/ALUM/SIMETH 30 ML UDCUP PO ONE (15:00)
[2022-08-04] MEDS ORDERED: LIDOCAINE HCL 2% VISCOUS 15 ML UDCUP PO ONE (15:00)
[2022-08-04 15:04] LABS: CREATININE 0.7 mg/dL (0.5-1.5); POTASSIUM 3.4 mmol/L (3.5-5.1)
[2022-08-04 15:08] LABS: ALBUMIN 4.1 g/dL (3.5-5.0)
[2022-08-04] MEDS ORDERED: OMEP20TA2 PO (15:50)
[2022-08-04 15:53] LABS: APPEARANCE,URINE CLEAR (CLEAR); BILIRUBIN,URINE NEGATIVE (NEGATIVE); COLOR,URINE LIGHT-YELLOW (YELLOW); GLUCOSE, URINE (UA) NEGATIVE (NEGATIVE); KETONES,URINE 20 mg/dL (NEGATIVE); LEUKOCYTE ESTERASE ,URINE 250 Leu/uL (NEGATIVE); NITRATE,URINE NEGATIVE (NEGATIVE); PROTEIN,URINE NEGATIVE (NEGATIVE)
[2022-08-04 15:56] LABS: MUCUS,URINE RARE LPF (None Seen); SQUAMOUS EPITHELIAL CELL,UR FEW /HPF (0-2)
[2022-08-04] MEDS ORDERED: MACR100 PO (15:58)
== END 2022-08-04 16:00 | disposition home or self-care (01) ==
LOC: EDH 14:28
DX: N39.0 Urinary tract infection, site not specified (principal); R10.11 Right upper quadrant pain; E78.5 Hyperlipidemia, unspecified; Z88.5 Allergy status to narcotic agent; Z88.6 Allergy status to analgesic agent; Z88.8 Allergy status to other drugs, medicaments and biological substances; G47.30 Sleep apnea, unspecified
CPT/HCPCS: 36415; 80053; 81001; 82150; 83690; 84484; 85025; 87077; 87088; 87186

== ENCOUNTER 2022-08-09 13:49 | Emergency (ER) | payer OTHER, MEDICAID ==
[~2022-08-09] VITALS: Ht 149.9 cm; Wt 72.1 kg
[~2022-08-09 13:49] MED LIST changes: +MACR100 PO; +OMEP20TA2 PO
[2022-08-09] MEDS ORDERED: NA P230E RC (18:41)
[2022-08-09] MEDS ORDERED: MAGN100P3 MC (18:41)
[2022-08-09 19:56] LABS: BASOPHILS % (AUTO) 0.8 % (0.0-5.0); EOSINOPHILS % (AUTO) 0.3 % (0.0-8.0); HEMATOCRIT 39.8 % (36-48); LYMPHOCYTES % (AUTO) 37.3 % (21.0-51.0); MEAN CORPUSCULAR HEMOGLOBIN 31.8 pg (27.0-33.0); MEAN CORPUSCULAR HGB CONC 34.2 g/dL (32.0-36.0); MONOCYTES % (AUTO) 6.3 % (3.0-13.0); NEUTROPHILS % (AUTO) 55.1 % (40.0-77.0); PLATELET COUNT (AUTO) 251 K/uL (130-400); RED BLOOD CELL COUNT(AUTO) 4.28 MIL/uL (4.00-5.50); RED CELL DISTRIBUTION WIDTH 12.4 % (11.0-15.5); WHITE BLOOD COUNT (AUTO) 6.5 K/uL (4.8-10.8)
[2022-08-09 19:57] LABS: APPEARANCE,URINE CLEAR (CLEAR); BILIRUBIN,URINE NEGATIVE (NEGATIVE); COLOR,URINE LIGHT-YELLOW (YELLOW); GLUCOSE, URINE (UA) NEGATIVE (NEGATIVE); KETONES,URINE 10 mg/dL (NEGATIVE); LEUKOCYTE ESTERASE ,URINE 75 Leu/uL (NEGATIVE); NITRATE,URINE NEGATIVE (NEGATIVE); PROTEIN,URINE NEGATIVE (NEGATIVE); UROBILINOGEN,URINE 0.2 mg/dL (0.2-1.0)
[2022-08-09 20:10] LABS: BACTERIA,URINE RARE /HPF (None Seen); MUCUS,URINE RARE LPF (None Seen); RBC,URINE 0-1 /HPF (0-1); SQUAMOUS EPITHELIAL CELL,UR RARE /HPF (0-2)
[2022-08-09 20:24] LABS: ALBUMIN 4.5 g/dL (3.5-5.0); CREATININE 0.5 mg/dL (0.5-1.5); TOTAL PROTEIN, SERUM 8.4 g/dL (6.0-8.3)
[2022-08-09] MEDS ORDERED: IOHEXOL 350 MG/ML 100ML INFUS..BTL IV ONE (21:12)
[2022-08-09] MEDS ORDERED: CEFTRIAXONE 1G VIAL IVP ONE (22:00)
[2022-08-10 01:41] VITALS: BP 118/68
== END 2022-08-10 02:01 | disposition home or self-care (01) ==
LOC: EDH 13:49
DX: K59.00 Constipation, unspecified (principal); G47.30 Sleep apnea, unspecified; Z88.6 Allergy status to analgesic agent; Z79.899 Other long term (current) drug therapy; Z98.890 Other specified postprocedural states
CPT/HCPCS: 99285; 96374; 71270; 71046; 84484; 80053; 83880; 85025; 85378; 87088; 81001; 36415; 93005; J0696; Q9967

== ENCOUNTER 2022-09-19 14:31 | Emergency (ER) | payer MEDICAID, OTHER ==
[~2022-09-19] VITALS: Ht 149.9 cm; Wt 74.8 kg
[~2022-09-19 14:31] MED LIST changes: +MAGN100P3 MC; +NA P230E RC
[2022-09-19 15:23] VITALS: BP 105/72
[2022-09-19] MEDS ORDERED: BENZ-39 PO (16:14)
[2022-09-19] MEDS ORDERED: MOLN200C PO (16:28)
== END 2022-09-19 16:33 | disposition home or self-care (01) ==
LOC: EDH 14:31
DX: U07.1 COVID-19 (principal); B34.9 Viral infection, unspecified; G47.30 Sleep apnea, unspecified; Z88.6 Allergy status to analgesic agent; Z79.899 Other long term (current) drug therapy; Z98.890 Other specified postprocedural states
CPT/HCPCS: 99283; 87635; 87880; 87804 ×2; C9803

== ENCOUNTER → 2022-09-25 | Outpatient (CLI) | payer MEDICAID ==
[~2022-09-25] MED LIST changes: +BENZ-39 PO; +MOLN200C PO
== END | disposition home or self-care (01) ==
LOC: RAH 12:57
PROVIDERS: ATTEND Family Medicine
DX: Z01.818 Encounter for other preprocedural examination (principal); K80.13 Calculus of gallbladder with acute and chronic cholecystitis with obstruction
CPT/HCPCS: 71046

== ENCOUNTER 2022-10-03 06:41 | Day surgery (SDC) | payer OTHER, MEDICAID ==
[2022-10-01 09:13] LABS: BASOPHILS % (AUTO) 0.9 % (0.0-5.0); EOSINOPHILS % (AUTO) 1.1 % (0.0-8.0); HEMATOCRIT 37.6 % (36-48); LYMPHOCYTES % (AUTO) 53.8 % (21.0-51.0); MEAN CORPUSCULAR HEMOGLOBIN 31.4 pg (27.0-33.0); MEAN CORPUSCULAR HGB CONC 33.2 g/dL (32.0-36.0); MEAN CORPUSCULAR VOLUME 94.5 fL (79-99); MONOCYTES % (AUTO) 7.9 % (3.0-13.0); NEUTROPHILS % (AUTO) 36.1 % (40.0-77.0); PLATELET COUNT (AUTO) 299 K/uL (130-400); RED BLOOD CELL COUNT(AUTO) 3.98 MIL/uL (4.00-5.50); RED CELL DISTRIBUTION WIDTH 12.6 % (11.0-15.5); WHITE BLOOD COUNT (AUTO) 5.6 K/uL (4.8-10.8)
[2022-10-01 09:21] LABS: CREATININE 0.6 mg/dL (0.5-1.5); POTASSIUM 4.6 mmol/L (3.5-5.1)
[2022-10-01 13:02] VITALS: BP 119/59
[~2022-10-03] VITALS: Ht 149.9 cm; Wt 72.8 kg
[2022-10-03] VITALS (12 sets, daily range): BP systolic 111–136; BP diastolic 61–79
[~2022-10-03 06:41] MED LIST changes: -ACET-2079 PO; -BENZ-39 PO; +CHOL500051 PO; -D-ME1POW16 PO; +DOXY100T2 PO; -LORA2TAB80 PO; -MACR100 PO; -MAGN100P3 MC; -MOLN200C PO; -NA P230E RC; -NIRM1TAB PO; +ONDA4TAB10 PO; -P-EP-642 PO; -PREG50 PO; +albuterol sulfate IH
[2022-10-03] MEDS ORDERED: LACTATED RINGERS 1000ML 1,000 ML IV ONE (07:27)
[2022-10-03] MEDS ORDERED: BUPIVACAINE/PF 0.5% 30ML VIAL ONE (07:31)
[2022-10-03] MEDS ORDERED: OMEP-420 PO (07:52)
[2022-10-03] MEDS ORDERED: LORA10TA7 PO (07:54)
[2022-10-03] MEDS ORDERED: AMOX500C2 PO (07:56)
[2022-10-03] MEDS ORDERED: CLAR-44 PO (07:56)
[2022-10-03] MEDS ORDERED: LIDOCAINE PF 100MG/5ML (2%) SYRINGE 5ML ONE (08:13)
[2022-10-03] MEDS ORDERED: GLYCOPYRROLATE 1 MG/5 ML SYRINGE ONE (08:13)
[2022-10-03] MEDS ORDERED: PROPOFOL 10 MG/ML 20ML VIAL IV ONE (08:13)
[2022-10-03] MEDS ORDERED: SUCCINYLCHOLINE CHLORIDE 20 MG/ML 10 ML VIAL ONE (08:13)
[2022-10-03] MEDS ORDERED: ROCURONIUM 10MG/1ML SYR 10 MG/ML ML ONE (08:14)
[2022-10-03] MEDS ORDERED: MIDAZOLAM HCL 1 MG/ML 2ML VIAL ONE (08:14)
[2022-10-03] MEDS ORDERED: FENTANYL CITRATE PF 50 MCG/1 ML 2ML VIAL ONE ×2 (08:14→11:49)
[2022-10-03] MEDS: CEFAZOLIN SODIUM 2 GM VIAL IVPB SCH ×2 (08:21→09:50)
[2022-10-03] MEDS ORDERED: NEOSTIGMINE 5MG/5ML SYR IV ONE (10:29)
[2022-10-03] MEDS ORDERED: ONDANSETRON 4MG INJ ONE (10:34)
[2022-10-03] MEDS ORDERED: MEPERIDINE-PF 25 MG/ML SYG ONE (10:48)
[2022-10-03] MEDS ORDERED: ACETAMINOPHEN 325 MG TAB ONE (11:35)
== END 2022-10-03 12:39 | disposition home or self-care (01) ==
LOC: DAH 06:41
PROVIDERS: ATTEND Surgery
DX: K80.10 Calculus of gallbladder with chronic cholecystitis without obstruction (principal); Z20.822 Contact with and (suspected) exposure to COVID-19; K76.0 Fatty (change of) liver, not elsewhere classified; G47.30 Sleep apnea, unspecified; Z98.890 Other specified postprocedural states; Z79.01 Long term (current) use of anticoagulants; Z79.899 Other long term (current) drug therapy
CPT/HCPCS: 80048; 85025; 87426; 36415; 47562; 88304; A6260; A4663; J7030; J7120; J3010 ×2; J3490 ×2; J2710; J0330; J2001; J2250; J2704; J2405; J2175; J0690; C1769 ×3; A4649 ×2; A4930; A4215; A4223; A4222; A4221; A4600

== ENCOUNTER 2023-10-22 11:07 | Emergency (ER) | payer MEDICAID ==
[~2023-10-22] VITALS: Ht 124.5 cm; Wt 79.4 kg
[~2023-10-22 11:07] MED LIST changes: +AMOX500C2 PO; +CLAR-44 PO; -DOXY100T2 PO; +LORA10TA7 PO; +MONT-46 PO; -MONT10TA21 PO; +OMEP-420 PO; -OMEP20CA12 PO; -OMEP20TA2 PO
[2023-10-22 12:16] LABS: RAPID GROUP A STREP negative (NEGATIVE)
[2023-10-22 12:20] VITALS: BP 140/86; PULSE 80; RESP 14; O2SAT 100
[2023-10-22 12:26] LABS: INFLUENZA TYPE A Negative For Type A (NEGATIVE); INFLUENZA TYPE B Negative For Type B (NEGATIVE)
[2023-10-22 12:27] LABS: SARS-CoV-2, RNA, NAAT POSITIVE SARS CoV-2 (NEGATIVE)
[2023-10-22] MEDS ORDERED: FLUT16H NASAL (12:30)
[2023-10-22] MEDS ORDERED: BENZ200C53 PO (12:30)
== END 2023-10-22 12:43 | disposition home or self-care (01) ==
LOC: EDH 11:07
DX: U07.1 COVID-19 (principal); J06.9 Acute upper respiratory infection, unspecified; Z79.899 Other long term (current) drug therapy; Z88.5 Allergy status to narcotic agent; Z88.6 Allergy status to analgesic agent
CPT/HCPCS: 87635; 87804; 87880

== ENCOUNTER 2023-12-07 04:50 | Observation (INO) | payer MEDICAID ==
[2023-12-02 14:01] LABS: BASOPHILS # (AUTO) 0.05 K/uL (0.00-0.20); BASOPHILS % (AUTO) 0.8 % (0.0-5.0); EOSINOPHILS # (AUTO) 0.08 K/uL (0.00-0.70); EOSINOPHILS % (AUTO) 1.3 % (0.0-8.0); HEMATOCRIT 37.2 % (36-48); IMMATURE GRANULOCYTE ABSOLUTE 0.01 K/uL (0-1); LYMPHOCYTES # (AUTO) 2.8 K/uL (1.0-4.8); LYMPHOCYTES % (AUTO) 47.2 % (21.0-51.0); MEAN CORPUSCULAR HEMOGLOBIN 32.6 pg (27.0-33.0); MEAN CORPUSCULAR HGB CONC 33.6 g/dL (32.0-36.0); MEAN CORPUSCULAR VOLUME 97.1 fL (79-99); MONOCYTES # (AUTO) 0.6 K/uL (0.1-1.0); MONOCYTES % (AUTO) 10.6 % (3.0-13.0); NEUTROPHILS # (AUTO) 2.4 K/uL (1.8-7.7); NEUTROPHILS % (AUTO) 39.9 % (40.0-77.0); PLATELET COUNT (AUTO) 287 K/uL (130-400); RED BLOOD CELL COUNT(AUTO) 3.83 MIL/uL (4.00-5.50); RED CELL DISTRIBUTION WIDTH 12.9 % (11.0-15.5); WHITE BLOOD COUNT (AUTO) 5.9 K/uL (4.8-10.8)
[2023-12-02 14:06] LABS: CREATININE 0.6 mg/dL (0.5-1.5); POTASSIUM 3.9 mmol/L (3.5-5.1)
[2023-12-02 14:09] LABS: INR <= 0.93 (0.85-1.15); PROTHROMBIN TIME 9.8 SEC (9.6-11.6)
[2023-12-02 14:22] LABS: PARTIAL THROMBOPLASTIN TIME 26.1 SEC (26.3-35.5)
[2023-12-02 14:24] LABS: ALBUMIN 3.8 g/dL (3.5-5.0); BILIRUBIN,TOTAL 0.2 mg/dL (0.2-1.0); TOTAL PROTEIN, SERUM 7.8 g/dL (6.0-8.3)
[2023-12-02 14:36] VITALS: BP 131/73; PULSE 73; RESP 15
[2023-12-07] VITALS (27 sets, daily range): BP systolic 106–131; BP diastolic 57–72; PULSE 77–92; RESP 12–18; O2SAT 97–98
[~2023-12-07] VITALS: Ht 149.9 cm; Wt 82.6 kg
[~2023-12-07 04:50] MED LIST changes: +ACET-2079 PO; -AMOX500C2 PO; -ASCO500C18 PO; +BENZ200C53 PO; -CHOL500051 PO; -CLAR-44 PO; +CYCL30DR OP; -FLUT15.845 NS; -HYDR-4068 PO; +LINA290C PO; -LORA10TA7 PO; -OMEP-420 PO; -ONDA4TAB10 PO; +PHARMACY COMMUNICATION MISC SCH; -SERT-439 PO; +TRAZ150T79 PO; -ZINC50TA64 PO; -albuterol sulfate IH
[2023-12-07] MEDS: LACTATED RINGERS 1000ML 1,000 ML IV ONE (06:21)
[2023-12-07] MEDS ORDERED: MIDAZOLAM HCL 1 MG/ML 2ML VIAL ONE ×3 (08:02→10:12)
[2023-12-07] MEDS: CEFAZOLIN SODIUM 2 GM VIAL ONE ×2 (08:10→16:15)
[2023-12-07] MEDS ORDERED: MEPERIDINE-PF 25 MG/ML SYG ONE (08:24)
[2023-12-07] MEDS ORDERED: PROPOFOL 10 MG/ML 20ML VIAL IV ONE ×4 (08:25→10:12)
[2023-12-07] MEDS: TRANEXAMIC ACID 1000MG/10ML ONE ×2 (08:25→10:23)
[2023-12-07] MEDS ORDERED: EPHEDRINE SULFATE 50 MG/ML AMPULE ONE (08:38)
[2023-12-07] MEDS: GENTAMICIN SULFATE 80 MG/2 ML VIAL ONE (09:28)
[2023-12-07] MEDS: 0.9%NACL 48.45 ML, ROPIVACAINE 0.5% 49.25ML, EPINEPH 0.5MG KETOROLAC 30MG,CLONIDINE 80MCG IV PRN (09:28)
[2023-12-07] MEDS: CEFAZOLIN SODIUM 1 GM VIAL ONE (09:28)
[2023-12-07] MEDS: MEPERIDINE-PF 25 MG/ML SYG ONE ×2 (11:54→12:45)
[2023-12-07] MEDS ORDERED: HYDROMORPHONE PCA 10 MG/50 ML 50 ML IV PRN (18:00)
[2023-12-07] MEDS ORDERED: TRAMADOL HCL 50 MG TABLET PO PRN ×2 (18:00→18:30)
[2023-12-07] MEDS: HYDROMORPH /0.9% NACL/PF PCA 50 ML IV PRN (18:19)
[2023-12-07] MEDS ORDERED: MAG/ALUM/SIMETH 30 ML UDCUP PO PRN (18:30)
[2023-12-07] MEDS ORDERED: ACETAMINOPHEN 325 MG TAB PO PRN ×2 (18:30)
[2023-12-07] MEDS: CEFAZOLIN SODIUM 2 GM VIAL IVPB SCH (18:30)
[2023-12-07] MEDS ORDERED: DIPHENHYDRAMINE HCL 25 MG CAPSULE PO PRN (19:30)
[2023-12-07] MEDS ORDERED: DIPHENOXYLATE HCL/ATROPINE 2.5/0.025 MG TAB PO PRN (19:30)
[2023-12-07] MEDS ORDERED: BENZOCAINE/MENTH/CETYLPYRD CL 1 EACH LOZENGE MM PRN (19:30)
[2023-12-07] MEDS ORDERED: DiphenhydrAMINE HCL 50 MG/ML VIAL IM PRN (19:30)
[2023-12-07] MEDS: 0.9%NACL 1000ML 1,000 ML IV SCH (19:43)
[2023-12-07] MEDS: ONDANSETRON 4MG INJ IVP PRN (19:52)
[2023-12-08] VITALS (7 sets, daily range): BP systolic 98–120; BP diastolic 60–70; PULSE 80–101; RESP 16–20; O2SAT 98–100
[2023-12-08 03:45] LABS: MEAN CORPUSCULAR HEMOGLOBIN 32.8 pg (27.0-33.0); MEAN CORPUSCULAR HGB CONC 34.3 g/dL (32.0-36.0); MEAN CORPUSCULAR VOLUME 95.6 fL (79-99); RED BLOOD CELL COUNT(AUTO) 2.93 MIL/uL (4.00-5.50); RED CELL DISTRIBUTION WIDTH 12.8 % (11.0-15.5); WHITE BLOOD COUNT (AUTO) 8.2 K/uL (4.8-10.8)
[2023-12-08 03:53] LABS: CREATININE 0.6 mg/dL (0.5-1.5); POTASSIUM 3.2 mmol/L (3.5-5.1)
[2023-12-08] MEDS: RIVAROXABAN 10 MG TABLET PO SCH (12:09)
[2023-12-08] MEDS ORDERED: TRAZODONE HCL 50 MG TAB PO PRN (12:30)
[2023-12-08] MEDS ORDERED: CYCLOSPORINE OP PRN (12:30)
[2023-12-08] MEDS: 0.9%NACL 1000ML 1,000 ML IV SCH (20:05)
[2023-12-09] VITALS (7 sets, daily range): BP systolic 93–111; BP diastolic 60–67; PULSE 80–103; RESP 14–20; O2SAT 95–98
[2023-12-09] MEDS: ACETAMINOPHEN WITH CODEINE 1 TAB TAB PO PRN ×2 (01:18→20:10)
[2023-12-09 03:58] LABS: HEMATOCRIT 29.5 % (36-48); MEAN CORPUSCULAR HEMOGLOBIN 32.8 pg (27.0-33.0); MEAN CORPUSCULAR HGB CONC 33.6 g/dL (32.0-36.0); MEAN CORPUSCULAR VOLUME 97.7 fL (79-99); RED BLOOD CELL COUNT(AUTO) 3.02 MIL/uL (4.00-5.50); RED CELL DISTRIBUTION WIDTH 12.7 % (11.0-15.5); WHITE BLOOD COUNT (AUTO) 10.4 K/uL (4.8-10.8)
[2023-12-09 04:09] LABS: CREATININE 0.6 mg/dL (0.5-1.5)
[2023-12-09] MEDS ORDERED: MAGNESIUM 2GM PREMIX 50ML 50 ML IV PRN (04:30)
[2023-12-09] MEDS ORDERED: POTASSIUM CHLORIDE 10% ELIXIR 20 MEQ/15 ML UDCUP PO PRN (04:30)
[2023-12-09] MEDS: POTASSIUM CHLORIDE 20MEQ/100ML 100 ML IV PRN (04:59)
[2023-12-09] MEDS: ACETAMINOPHEN 325 MG TAB PO PRN (06:00)
[2023-12-09] MEDS: ATORVASTATIN 40 MG TABLET PO SCH (08:27)
[2023-12-09] MEDS: MONTELUKAST SODIUM 10 MG TAB PO SCH (08:27)
[2023-12-09] MEDS: KCL 20 MEQ ERTAB PO PRN (08:28)
[2023-12-09] MEDS: LACTULOSE 20 GM/30 ML UDCUP PO PRN (08:38)
[2023-12-10] VITALS (7 sets, daily range): BP systolic 95–115; BP diastolic 54–65; PULSE 77–89; RESP 16–18; O2SAT 96–100
[2023-12-10 05:01] LABS: HEMATOCRIT 28.3 % (36-48); MEAN CORPUSCULAR HEMOGLOBIN 33.6 pg (27.0-33.0); MEAN CORPUSCULAR HGB CONC 34.3 g/dL (32.0-36.0); MEAN CORPUSCULAR VOLUME 97.9 fL (79-99); RED BLOOD CELL COUNT(AUTO) 2.89 MIL/uL (4.00-5.50); RED CELL DISTRIBUTION WIDTH 12.6 % (11.0-15.5); WHITE BLOOD COUNT (AUTO) 9.7 K/uL (4.8-10.8)
[2023-12-10 05:14] LABS: CREATININE 0.6 mg/dL (0.5-1.5); POTASSIUM 3.6 mmol/L (3.5-5.1)
[2023-12-11] VITALS: BP 117/66; PULSE 81; RESP 17
[2023-12-11 03:57] VITALS: BP 123/68; PULSE 79; RESP 17
[2023-12-11 08:00] VITALS: BP 129/75; PULSE 84; RESP 18
[2023-12-11 08:30] VITALS: O2SAT 98
[2023-12-11 12:00] VITALS: BP 135/74; PULSE 83; RESP 16
== END 2023-12-11 15:30 ==
LOC: DAH 04:50 → DAHIP 04:51 → DAH 05:07 → 4CH 17:16
PROVIDERS: ADMIT Orthopaedic Surgery; ATTEND Orthopaedic Surgery
DX: M17.11 Unilateral primary osteoarthritis, right knee (principal); E87.6 Hypokalemia; E66.01 Morbid (severe) obesity due to excess calories; E78.5 Hyperlipidemia, unspecified; M06.861 Other specified rheumatoid arthritis, right knee; J45.909 Unspecified asthma, uncomplicated; F32.A Depression, unspecified; F41.9 Anxiety disorder, unspecified; K21.9 Gastro-esophageal reflux disease without esophagitis; G47.9 Sleep disorder, unspecified; M81.0 Age-related osteoporosis without current pathological fracture; Z90.710 Acquired absence of both cervix and uterus; Z88.6 Allergy status to analgesic agent; Z68.36 Body mass index [BMI] 36.0-36.9, adult; Z79.01 Long term (current) use of anticoagulants; Z86.2 Personal history of diseases of the blood and blood-forming organs and certain disorders involving the immune mechanism
CPT/HCPCS: 80053; 85025; 85610; 85730; 36415 ×4; 71045; 93005; 87641; 27447; 96365; 96366 ×3; 96375; 97161; 97012; 97116 ×8; 97530 ×14; 96376; 83036; 80048 ×3; 85027 ×3; 83735; A6260; G0378 ×86; A4510; A4663; J7120 ×2; A4215 ×2; A4649 ×4; J0690 ×2; J3490 ×7; J1580; J2250 ×3; J2405 ×2; J2175 ×3; A6223; C1763 ×2; C1776; A5120; A4223; A4222; A4221; A6450; J7030; J3480; J2704

== ENCOUNTER 2024-04-18 12:54 | Emergency (ER) | payer MEDICAID ==
[~2024-04-18] VITALS: Ht 149.9 cm; Wt 81.2 kg
[~2024-04-18 12:54] MED LIST changes: -ACET-2079 PO; -PHARMACY COMMUNICATION MISC SCH
[2024-04-18 13:43] LABS: SARS-CoV-2, RNA, NAAT NEGATIVE SARS CoV-2 (NEGATIVE)
[2024-04-18 13:51] LABS: INFLUENZA TYPE A Negative For Type A (NEGATIVE); INFLUENZA TYPE B Negative For Type B (NEGATIVE)
[2024-04-18] MEDS: ACETAMINOPHEN 500 MG TABLET PO ONE (14:46)
[2024-04-18 15:04] VITALS: BP 122/81; PULSE 84; RESP 16; O2SAT 98
[2024-04-18] MEDS ORDERED: METH4TAB3 PO (15:24)
== END 2024-04-18 15:32 | disposition home or self-care (01) ==
LOC: EDH 12:54
DX: R51.9 Headache, unspecified (principal); Z20.822 Contact with and (suspected) exposure to COVID-19; Z79.899 Other long term (current) drug therapy; Z88.5 Allergy status to narcotic agent; Z88.6 Allergy status to analgesic agent
CPT/HCPCS: 87635; 87804

== ENCOUNTER → 2024-08-05 | Outpatient (CLI) | payer MEDICAID ==
[~2024-08-05] MED LIST changes: +METH4TAB3 PO
== END | disposition home or self-care (01) ==
LOC: RAH 14:42
PROVIDERS: ATTEND Family Medicine
DX: Z12.31 Encounter for screening mammogram for malignant neoplasm of breast (principal)
CPT/HCPCS: 77067

== ENCOUNTER 2024-08-23 12:21 | Emergency (ER) | payer MEDICAID ==
[~2024-08-23] VITALS: Ht 149.9 cm; Wt 81.6 kg
--- NOTE | 2024-08-23 12:38 | EKG ---
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
[2024-08-23 13:24] LABS: CREATININE 0.5 mg/dL (0.5-1.0); POTASSIUM 4.1 mmol/L (3.5-5.1)
[2024-08-23 13:27] LABS: BASOPHILS # (AUTO) 0.06 K/uL (0.00-0.20); BASOPHILS % (AUTO) 0.9 % (0.0-5.0); EOSINOPHILS # (AUTO) 0.18 K/uL (0.00-0.70); EOSINOPHILS % (AUTO) 2.6 % (0.0-8.0); HEMATOCRIT 36.8 % (36-48); IMMATURE GRANULOCYTE ABSOLUTE 0.02 K/uL (0-1); LYMPHOCYTES # (AUTO) 2.8 K/uL (1.0-4.8); LYMPHOCYTES % (AUTO) 39.8 % (21.0-51.0); MEAN CORPUSCULAR HEMOGLOBIN 31.9 pg (27.0-33.0); MEAN CORPUSCULAR HGB CONC 33.2 g/dL (32.0-36.0); MEAN CORPUSCULAR VOLUME 96.3 fL (79-99); MONOCYTES # (AUTO) 0.8 K/uL (0.1-1.0); MONOCYTES % (AUTO) 10.7 % (3.0-13.0); NEUTROPHILS # (AUTO) 3.2 K/uL (1.8-7.7); NEUTROPHILS % (AUTO) 45.7 % (40.0-77.0); PLATELET COUNT (AUTO) 313 K/uL (130-400); RED BLOOD CELL COUNT(AUTO) 3.82 MIL/uL (4.00-5.50); RED CELL DISTRIBUTION WIDTH 12.5 % (11.0-15.5)
[2024-08-23 13:29] LABS: MAGNESIUM 2.3 mg/dL (1.80-2.40)
--- NOTE | 2024-08-23 14:01 | ERN ---
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 Patient states she was playing bingo at a local alf which she became angry with what was going on and that is when the chest pain started. She reports previous episodes that have been similar to this but this time the episode did not improve on its own so she decided to report to the ER for further evaluation. She does report having a history of anxiety. Patient denies any nausea, vomiting or any other associated symptoms at this time. Allergies: Coded Allergies: ibuprofen (Unverified Allergy, Unknown, 02/26/19) tramadol (Unverified Allergy, Unknown, 02/26/19) Home Meds Active Scripts Methylprednisolone (Medrol) 4 Mg Tab.ds.pk, 4 MG PO AD, #1 UNIT Prov:SURINDER VALDEZ DINING SERVICE WORKER 04/18/24 Benzonatate (Benzonatate) 200 Mg Capsule, 200 MG PO TID PRN for COUGH for 14 Days, #42 CAP Prov:TONY OSORIO V LICENSED PHYSICAL THERAPIST ASSISTANT 10/22/23 Reported Medications Trazodone HCl (Trazodone HCl) 150 Mg Tablet, 150 MG PO HS PRN for SLEEP, TAB 12/02/23 Cyclosporine (Restasis) 0.05 % Droperette, 2 EACH OP BID PRN for DRYNESS, DROP 12/02/23 Linaclotide (Linzess) 290 Mcg Capsule, 290 MCG PO AM, CAP 12/02/23 Montelukast Sodium (Singulair 10Mg) 10 Mg Tab, 10 MG PO DAILY, TAB 12/04/20 Atorvastatin Calcium (LIPITOR) 40 Mg Tablet, 40 MG PO DAILY, TAB 12/04/20 Past Medical History Past Medical History: Anxiety, Hypertension Medical History Other: SLEEP APNEA, CONSTIPATION, GALLSTONES Past Surgical History: Cholecystectomy, Other, Surgical History Other: KNEE, KIDNEY STONES Social History Social History: Negative, Lives with family Female( History) History: Not Applicable ROS Dictation Constitutional: Negative for fever,chills, and weight loss Eyes: Negative for injury, pain,redness, and discharge ENT: Negative for injury,pain or swelling Cardiovascular: Positive for chest pain, negative for palpitations, and edema Respiratory: Negative for shortness of breath, cough, and wheezing, Abdomen/GI: Negative for abdominal pain, nausea, vomiting, diarrhea, and constipation Back: Negative for injury and pain : Negative for injury, bleeding and discharge MS/Extremity: Negative for injury and deformity Skin: Negative for rash, and discoloration Neuro: Negative for headache, weakness, numbness, tingling, and seizure Psych: Negative for suicide ideation, homicidal ideation, and hallucinations Physical Exam Physical Exam Dictation General: awake, alert, NAD Head/Face: Normocephalic, atraumatic Eyes: PERRL, EOMI, vision at baseline ENT: oral cavity clear, TMs clear, no signs of infection Neck: Trachea midline, supple, no nuchal rigidity Cardiovascular: RRR, normal S1/S2, No MRGs, no JVD Respiratory: CTAB, no respiratory distress, No rales or wheezes Abdomen: Soft, non-tender, non-distended, normal bowel sounds, no guarding or rebound. Skin: Warm, dry, normal turgor, no rash MS/Extremity: Pulses equal, no cyanosis, neurovascular intact, FROM Neuro: COAx4, GCS 15, strength 5/5, CN 2-12 intact, normal cerebellar exam, normal gait, Psych: Normal behavior, mood, and affect normal Results Laboratory and Microbiology Lab and Micro Result Laboratory Tests Test 08/23/24 12:49 White Blood Count 7.0 K/uL (4.8-10.8) Red Blood Count 3.82 MIL/uL (4.00-5.50) L Hemoglobin 12.2 g/dL (12.0-16.0) Hematocrit 36.8 % (36-48) Mean Corpuscular Volume 96.3 fL (79-99) Mean Corpuscular Hemoglobin 31.9 pg (27.0-33.0) Mean Corpuscular Hemoglobin Concent 33.2 g/dL (32.0-36.0) Red Cell Distribution Width 12.5 % (11.0-15.5) Platelet Count 313 K/uL (130-400) Mean Platelet Volume 9.9 fL (7.5-10.5) Immature Granulocyte % (Auto) 0.3 % (0-1) Neutrophils (%) (Auto) 45.7 % (40.0-77.0) Lymphocytes (%) (Auto) 39.8 % (21.0-51.0) Monocytes (%) (Auto) 10.7 % (3.0-13.0) Eosinophils (%) (Auto) 2.6 % (0.0-8.0) Basophils (%) (Auto) 0.9 % (0.0-5.0) Neutrophils # (Auto) 3.2 K/uL (1.8-7.7) Lymphocytes # (Auto) 2.8 K/uL (1.0-4.8) Monocytes # (Auto) 0.8 K/uL (0.1-1.0) Eosinophils # (Auto) 0.18 K/uL (0.00-0.70) Basophils # (Auto) 0.06 K/uL (0.00-0.20) Absolute Immature Granulocyte (auto 0.02 K/uL (0-1) Nucleated Red Blood Cells 0.0 % (0.0-0.19) Sodium Level 143 mmol/L (136-145) Potassium Level 4.1 mmol/L (3.5-5.1) Chloride Level 104 mmol/L (101-111) Carbon Dioxide Level 32 mmol/L (21-32) Blood Urea Nitrogen 11 mg/dL (7-18) Creatinine 0.5 mg/dL (0.5-1.0) Glomerular Filtration Rate Calc 109 mL/min (>90) Random Glucose 118 mg/dL (70-105) H Total Calcium 9.4 mg/dL (8.5-10.1) Magnesium Level 2.30 mg/dL (1.80-2.40) Total Creatine Kinase 45 U/L (21-232) # Troponin I High Sensitivity < 4 ng/L (4-50) L B-Type Natriuretic Peptide 11 pg/mL (0-100) Labs Reviewed?: Yes EKG/XRAY/US/CT/MRI EKG Comment EKG 08/23/2024 time 12:32 p.m. ventricular rate 75, NV 145, QRS D 88, QT 415. Sinus rhythm. 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 Patient states she was playing bingo at a local alf which she became angry with what was going on and that is when the chest pain started. She reports previous episodes that have been similar to this but this time the episode did not improve on its own so she decided to report to the ER for further evaluation. She does report having a history of anxiety. Patient denies any nausea, vomiting or any other associated symptoms at this time. On physical examination patient is in no acute distress. The remainder of her physical examination is unremarkable. Her blood work is stable. Her cardiac enzymes are negative. Her EKG does not show any ST elevations or bundle branch blocks. Her chest x-ray does not show any acute abnormality. Patient was re-evaluated and states that she believes this episode was caused by her anxiety. Patient is a low heart score. Patient will be dis charged home with close outpatient follow up. Return precautions discussed. Patient is stable for discharge Differential diagnosis: Chest pain, history of anxiety Previous outside records reviewed: Old ER visits. Need for hospitalization: Patient does not meet criteria for hospitalization. Need for emergency major/minor surgery: No Patient's prior external medical records from other ER visits were reviewed by me as indicated. Prior testing and results from previous visits were reviewed. Prior tests were taken into account with medical decision making and resource utilization, independent historian/historians were used to obtain complete medical history. I independently interpreted the test that were performed, results were reviewed by me and considered findings on radiology if ordered. Medical management and examination interpretation discussions were had by me with other qualified healthcare professionals as indicated for the patient's care. ED Course Orders Procedure Category Date Status Time 12 Lead Ekg Tracing- EKG 08/23/24 Complete Technical 12:22 12 Lead Ekg Tracing- EKG 08/23/24 Logged Technical 12:23 B-Type Natriuretic LAB 08/23/24 Complete Peptide 12:23 Cbc With Differential LAB 08/23/24 Complete 12:23 Basic Metabolic Panel LAB 08/23/24 Complete 12:23 Creatine Kinase, Total LAB 08/23/24 Complete 12:23 Magnesium LAB 08/23/24 Complete 12:23 Urinalysis Profile LAB 08/23/24 Logged 12:23 Troponin I High LAB 08/23/24 Complete Sensitivity 12:23 Chest 1vw RAD 08/23/24 Resulted 12:23 Vital Signs Date Time Temp Pulse Resp B/P (MAP) Pulse Ox O2 Delivery O2 Flow Rate FiO2 08/23/24 12:49 97.0 82 20 117/77 97 Room Air 0 [facility] [address] [place] [address] IMAGING REPORT Signed PATIENT: DILCIA URBANO MR#: [id number] : 1965 SEX: F AGE: 59 LOCATION: [facility] ORDER 23 STATUS: REG ER REPORT#: [id number] SERVICE 22 REASON: sob ORDERING PHYSICIAN: ADRIANA GIMENEZ PROCEDURE: CXR1VW - CHEST 1VW CHEST 1VW REASON: sob COMPARISON: 12/02/2023 FINDINGS: Single view of the chest was obtained. Lungs are clear. Heart size is normal. There is no pulmonary vascular congestion. Mediastinum and bony thorax appear unremarkable. IMPRESSION: 1. Normal single view chest x-ray. DICTATED BY: CHETAN VERGARA MD DATE: 08/23/241504 ELECTRONICALLY SIGNED BY: CHETAN VERGARA MD DATE: 08/23/24 1508 HEART Score Response (Comments) Value History: Low suspicion (0) 0 EKG: Normal 0 Age: 45-65yrs (+1) 1 Risk Factors: 1-2 risk factors (+1) 1 Initial Troponin: Normal limit (0) 0 HEART Score Risk: Low Risk for MACE (1-3) Total 2 DX & DISP Disposition: Discharge Departure Impression: Primary Impression: Non-cardiac chest pain Condition: Stable Additional Instructions: Your blood work today is unremarkable. Your kidney function is normal. Your electrolytes are normal. Your EKG does not show any evidence of a heart attack. Your chest x-ray does not show any acute abnormality. Your cardiac enzymes are negative. Follow up with your primary care doctor in 2-3 days for repeat evaluation. If you develop any new or worsening symptoms please report to the ER for further evaluation. Referrals: LYUDMILA VILLATORO MD (PCP) I have reviewed, & agreed with my scribe's, documentation. (Entered by Ellie Holley, acting as a scribe for REAL Gimenez) I have reviewed the case, and I agree with, Diagnosis and Plan I performed the substantive portion of the visit. I have reviewed and personally made and approve the management plan that is documented in the note by myself or the JERRI. I acknowledge for responsibility for the patient's management plan. I personally scribed for DAVE SERRANO MD (LEAH) on 08/23/24 at 14:01. Electronically submitted by Ellie Holley ([email or web address]). DAVE SERRANO MD Aug 23, 2024 14:01 ADRIANA GIMENEZ Aug 23, 2024 16:39
[2024-08-23 14:10] LABS: B-TYPE NATRIURETIC PEPTIDE 11 pg/mL (0-100)
--- NOTE | 2024-08-23 15:08 | HMCIMG ---
CHEST 1VW REASON: sob COMPARISON: 12/02/2023 FINDINGS: Single view of the chest was obtained. Lungs are clear. Heart size is normal. There is no pulmonary vascular congestion. Mediastinum and bony thorax appear unremarkable. IMPRESSION: 1. Normal single view chest x-ray.
[2024-08-23 16:42] VITALS: BP 132/75; PULSE 69; RESP 19; TEMP 97.6; O2SAT 96
== END 2024-08-23 16:56 | disposition home or self-care (01) ==
LOC: EDH 12:21
DX: R07.89 Other chest pain (principal); F41.9 Anxiety disorder, unspecified; I10 Essential (primary) hypertension; Z79.899 Other long term (current) drug therapy; Z88.5 Allergy status to narcotic agent; Z88.6 Allergy status to analgesic agent; Z90.49 Acquired absence of other specified parts of digestive tract
CPT/HCPCS: 36415; 71045; 80048; 82550; 83735; 83880; 84484; 85025; 93005; 99285

== ENCOUNTER 2024-10-25 05:37 | Day surgery (SDC) | payer MEDICAID ==
[~2024-10-25] VITALS: Ht 149.9 cm; Wt 81.6 kg
[2024-10-25] VITALS (11 sets, daily range): BP systolic 112–126; BP diastolic 64–73; PULSE 65–84; RESP 15–18; TEMP 97–97.5
[~2024-10-25 05:37] MED LIST changes: +0.9%NACL 1000ML 0 ML IV ONE
[2024-10-25] MEDS: 0.9%NACL 1000ML 1,000 ML IV ONE (06:35)
[2024-10-25] MEDS ORDERED: proPOFol 10 MG/ML 20ML VIAL IV ONE (08:05)
--- NOTE | 2024-10-25 09:30 | NUR ---
FULL AND COMPLETE DISCHARGE INSTRUCTIONS GIVEN BOTH VERBALLY AND IN WRITING TO PATIENT AND FAMILY. ALL QUESTIONS ANSWERED. PIV REMOVED WITH CATHETER TIP INTACT. DENIES CURRENT PAIN OR NAUSEA. VOICED UNDERSTANDING TO EGD INSTRUCTIONS AND FOLLOW UP. W/C TO POV WITH FAMILY TO HOME.
== END 2024-10-25 09:20 | disposition home or self-care (01) ==
LOC: ENDO 05:37 → DAH 05:37 → ENDO 09:20
PROVIDERS: ATTEND Internal Medicine Gastroenterology
DX: R13.10 Dysphagia, unspecified (principal); K21.9 Gastro-esophageal reflux disease without esophagitis; K31.A19 Gastric intestinal metaplasia without dysplasia, unspecified site; K59.04 Chronic idiopathic constipation; K31.89 Other diseases of stomach and duodenum; K57.30 Diverticulosis of large intestine without perforation or abscess without bleeding; K76.0 Fatty (change of) liver, not elsewhere classified; K29.50 Unspecified chronic gastritis without bleeding; K64.9 Unspecified hemorrhoids; K44.9 Diaphragmatic hernia without obstruction or gangrene; F41.9 Anxiety disorder, unspecified; F32.A Depression, unspecified; I85.00 Esophageal varices without bleeding; R05.3 Chronic cough; M19.90 Unspecified osteoarthritis, unspecified site; G47.30 Sleep apnea, unspecified; E78.49 Other hyperlipidemia; E66.9 Obesity, unspecified; I10 Essential (primary) hypertension; Z68.36 Body mass index [BMI] 36.0-36.9, adult; Z79.899 Other long term (current) drug therapy; Z88.8 Allergy status to other drugs, medicaments and biological substances; Z90.710 Acquired absence of both cervix and uterus; Z96.659 Presence of unspecified artificial knee joint
CPT/HCPCS: 43239; J7030 ×2; J2704; A4620; A4215; A4223; A7002; A4222; A4221; A4663; A4606; J3490

== ENCOUNTER 2025-03-27 14:17 | Emergency (ER) | payer MEDICAID ==
[~2025-03-27] VITALS: Ht 149.9 cm; Wt 82.6 kg
[~2025-03-27 14:17] MED LIST changes: -0.9%NACL 1000ML 0 ML IV ONE; -CYCL30DR OP; -METH4TAB3 PO
--- NOTE | 2025-03-27 14:28 | ERN ---
ED Note History of Present Illness Stated Complaint: TINGLING FROM LEFT BACK TO SHOULDER;BUMP Time Seen by MD: 14:20 Dictation: PATIENT IS A 59-YEAR-OLD FEMALE WITH COMPLAINTS OF PAIN AND TINGLING TO THE LEFT POSTERIOR SHE HAS HAD FOR THE LAST 2-3 WEEKS. SHE STATES THE PAIN AND TINGLING IS WORSE WHEN SHE RANGES HER UPPER EXTREMITY. NO FEVER NO CHILLS. SHE STATES SHE SAW HER PRIMARY CARE DOCTOR WHO DID AN ULTRASOUND OF HER SHOULDER AND TOLD HER EVERYTHING WAS FINE, DID NOT PROVIDE ANYTHING FOR PAIN NOR DID HE REFERRED TO ANYBODY. SHE STATES SHE IS TAKING HYDROCODONE FOR A KNEE REPLACEMENT FROM HER ORTHOPEDIC SURGEON. Allergies: Coded Allergies: ibuprofen (Unverified Allergy, Unknown, 02/26/19) tramadol (Unverified Allergy, Unknown, 02/26/19) Home Meds Active Scripts Benzonatate (Benzonatate) 200 Mg Capsule, 200 MG PO TID PRN for COUGH for 14 Days, #42 CAP Prov:TONY OSORIO V TECHNOLOGY INTEGRATION SPECIALIST 10/22/23 Reported Medications Trazodone HCl (Trazodone HCl) 150 Mg Tablet, 150 MG PO HS PRN for SLEEP, TAB 12/02/23 Linaclotide (Linzess) 290 Mcg Capsule, 290 MCG PO AM, CAP 12/02/23 Montelukast Sodium (Singulair 10Mg) 10 Mg Tab, 10 MG PO DAILY, TAB 12/04/20 Atorvastatin Calcium (LIPITOR) 40 Mg Tablet, 40 MG PO DAILY, TAB 12/04/20 Past Medical History Past Medical History: Anxiety, Hypertension Additional Past Medical Hx: SLEEP APNEA, CONSTIPATION, GALLSTONES Surgical History: Cholecystectomy, Other, Surgical History Other: KNEE, KIDNEY STONES Social History: Negative, Lives with family History: Not Applicable RN Note Reviewed/Agreed w/PFSH: Yes Review of System Dictation CONSTITUTIONAL: NEGATIVE EXCEPT FOR HPI HEAD/FACE: NEGATIVE EXCEPT FOR HPI EENT: NEGATIVE EXCEPT FOR HPI RESPIRATORY: NEGATIVE EXCEPT FOR HPI GASTROINTESTINAL/ABDOMINAL: NEGATIVE EXCEPT FOR HPI GENITOURINARY: NEGATIVE EXCEPT FOR HPI MUSCULOSKELETAL: NEGATIVE EXCEPT FOR HPI CHRONIC POSTERIOR LEFT SHOULDER PAIN INTEGUMENTARY: NEGATIVE EXCEPT FOR HPI NEUROLOGICAL/PSYCH: NEGATIVE EXCEPT FOR HPI HEMATOLOGIC/LYMPHATIC: NEGATIVE EXCEPT FOR HPI ALL SYSTEMS NEGATIVE, EXCEPT NOTED ABOVE. 13 POINT REVIEW OF SYSTEMS ASSESSED AND ALL NEGATIVE EXCEPT FOR ABOVE. Initial Vital Sign VS Vital Signs Date Time Temp Pulse Resp B/P (MAP) Pulse Ox O2 Delivery O2 Flow Rate FiO2 03/27/25 14:34 98.2 78 16 122/75 99 Room Air 0 Physical Exam Dictation VITAL SIGNS REVIEWED GENERAL APPEARANCE: ALERT, ORIENTED X 3, NO ACUTE DISTRESS, WELL DEVELOPED, NOURISHED. MILD HEAD AND FACE: NON-TRAUMATIC. EYES: PERRL, PINK CONJUNCTIVAS, EYELID NO TRAUMA, ANTERIOR CHAMBER WITH ARCUS SENILIS. EARS: PINNAS INTACT AND NO SIGNS OF TRAUMA OR ERYTHEMA EAR CANALS CLEAR AND NO DISCHARGE TM NO ERYTHEMA NOSE: NO DISCHARGE, NO BLEEDING. OROPHARYNX: MOUTH NORMAL, TONGUE PINK, PHARYNX CLEAR,NO ERYTHEMA, TONSILS NO EXUDATES, NO ABSCESSES NOTED, MUCOUS MEMBRANE MOIST NECK: SUPPLE, NON-TENDER, NO THYROMEGALY, NO MASSES, NO JVD, NO BRUITS BREAST:DEFERRED CHEST:NO TENDERNESS, NO CREPITUS, NO PARADOXICAL MOVEMENT, NO RETRACTIONS LUNGS:CLEAR, WELL-VENTILATED, SYMMETRIC, NO RALES, NO WHEEZING, NO RHONCHI, NO STRIDOR, GOOD BREATH SOUNDS BILATERALLY HEART: REGULAR RATE, REGULAR RHYTHM, NO MURMUR, NO GALLOPS VASCULAR: NO PERIPHERAL EDEMA, ABDOMEN: SOFT, POSITIVE BOWEL SOUNDS, NONDISTENDED, NO GUARDING, NONTENDER, NO REBOUND, NO MASSES NO HEPATOMEGALY, NO SPLENOMEGALY, NO CARNES'S SIGN, NO HERNIAS. RECTAL: DEFERRED GENITAL: DEFERRED NEUROLOGICAL: NORMAL SPEECH, MOTOR FUNCTION INTACT, SENSORY FUNCTION INTACT MUSCULOSKELETAL: NECK NONTENDER, FULL RANGE OF MOTION, BACK NONTENDER, FULL RANGE OF MOTION, EXTREMITIES: DECREASED PAIN TO MOTION TO LEFT SHOULDER SECONDARY TO TENDERNESS. SKIN: COLOR PINK, DRY, NO TURGOR, NO RASH, NO LACERATIONS, NO ABRASIONS, NO CONTUSIONS. LYMPHATIC: DEFERRED Results (Laboratory/Radiology) Laboratory/Radiology SHOULDER COMP 2+VWS LT HISTORY: Left posterior shoulder pain COMPARISON: None TECHNIQUE: 2 images of the left shoulder were obtained. FINDINGS: There is no acute displaced fracture or dislocation. Degenerative changes are seen. IMPRESSION: 1. Findings as described above. Labs Reviewed?: Yes ED Course ED Course Orders Procedure Category Date Status Time Shoulder Comp 2+Vws Lt RAD 03/27/25 Resulted 14:25 Dexamethasone 4mg/Ml PHA 03/27/25 Complete 1ml Vial (Dexametha 14:30 Cyclobenzaprine Hcl PHA 03/27/25 Complete (Cyclobenzaprine Hcl 14:30 Current Medications Medications (Trade) Dose Ordered Sig/John Route PRN Reason Start Time Stop Time Status Last Admin Dose Admin Cyclobenzaprine HCl (Cyclobenzaprine HCl) 10 mg ONCE ONCE PO 03/27/25 14:30 03/27/25 14:31 DC Dexamethasone Sodium Phosphate (dexaMETHasone 4MG/ML 1ML VIAL) 8 mg ONCE ONCE IM 03/27/25 14:30 03/27/25 14:31 DC Vital Signs Date Time Temp Pulse Resp B/P (MAP) Pulse Ox O2 Delivery O2 Flow Rate FiO2 03/27/25 14:34 98.2 78 16 122/75 99 Room Air 0 Medical Decision Making [facility] 1620/MEDICAL DECISION-MAKING BASED ON PAIN MANAGEMENT AND X-RAY OF LEFT SHOULDER. PATIENT HAS DEGENERATIVE JOINT DISEASE LEFT SHOULDER SHE IS TAKING HYDROCODONE FOR PAIN AND WAS TOLD TO CONTINUE THAT. SHE WAS TOLD SHE COULD TAKE TYLENOL ARTHRITIS [id number] FOR MODERATE PAIN SENT HOME WITH PREDNISONE FOLLOW UP WITH , CALL FOR AN APPOINTMENT DX & DISP Disposition: Discharge Departure Impression: Primary Impression: DJD of left shoulder Additional Impression: Chronic left shoulder pain Condition: Stable Scripts Prednisone (Prednisone) 20 Mg Tablet 1 TAB PO AD for 6 Days, #14 TAB 0 Refills TAKE 1 TAB BY MOUTH THREE TIMES PER DAY X3 DAYS, THEN TAKE 1 TAB BY MOUTH TWICE A DAY X2 DAYS, THEN TAKE 1 TAB BY MOUTH ONCE A DAY X1 DAY. Prov: SURINDER VALDEZ FILE MACHINE OPERATOR 03/27/25 Additional Instructions: FOLLOW-UP WITH PRIMARY CARE PROVIDER IN 1 TO 2 DAYS. TAKE MEDICATIONS DIRECTED HERE IN THE EMERGENCY ROOM. OKAY TO CONTINUE HOME MEDICATIONS UNLESS OTHERWISE DISCUSSED DURING YOUR VISIT IN THE EMERGENCY ROOM TODAY. RETURN TO YOUR NEAREST EMERGENCY ROOM IF SYMPTOMS WORSEN OR IF THERE IS NO IMPROVEMENT. CALL 911 IF YOU NEED IMMEDIATE ASSISTANCE. TAKE TYLENOL OR MOTRIN [id number] NEEDED AND IF NO CONTRAINDICATIONS ARE PRESENT. INCREASE ORAL HYDRATION. A WOUND CULTURE OR URINE CULTURE WAS ORDERED HERE IN THE EMERGENCY ROOM DEPARTMENT PLEASE FOLLOW-UP WITH PRIMARY CARE PROVIDER AND ADVISE THEM TO GET REPEAT PORTS FROM OUR FACILITY. IF YOU HAD ANY RENE WRAP/SPLINTS TH AT WERE APPLIED HERE, PLEASE DO NOT REMOVE THEM UNTIL YOU SEE YOUR PRIMARY CARE OR SPECIALTY. TAKE PREDNISONE DIRECTED UNTIL GONE. SUGGEST TYLENOL ARTHRITIS 650 MG P.O. Q.8 [id number] NEEDED FOR MODERATE PAIN. CONTINUE YOUR HYDROCODONE FOR SEVERE PAIN. CALL ORTHOPEDIC SURGEON FOR AN APPOINTMENT IN NEXT 1-2 DAYS.. WARM COMPRESSES TO PAIN THREE TO 4 TIMES A DAY. Referrals: LYUDMILA VILLATORO MD (PCP) MAMADOU LEON MD Time of Disposition: 16:26 I have reviewed the case, and I agree with, Diagnosis and Plan SURINDER VALDEZ NP Mar 27, 2025 14:28
--- NOTE | 2025-03-27 15:45 | NUR ---
REC PATIENT AT THIS TIME
--- NOTE | 2025-03-27 15:51 | HMCIMG ---
SHOULDER COMP 2+VWS LT HISTORY: Left posterior shoulder pain COMPARISON: None TECHNIQUE: 2 images of the left shoulder were obtained. FINDINGS: There is no acute displaced fracture or dislocation. Degenerative changes are seen. IMPRESSION: 1. Findings as described above.
[2025-03-27] MEDS: dexaMETHasone SOD PHOSPHATE 4 MG/ML 1ML VIAL IM ONE (16:20)
[2025-03-27] MEDS: CYCLOBENZAPRINE HCL 10 MG TABLET PO ONE (16:20)
[2025-03-27] MEDS ORDERED: PRED20TA3 PO (16:26)
[2025-03-27 17:39] VITALS: BP 120/68; PULSE 70; RESP 16; TEMP 98.2; O2SAT 99
== END 2025-03-27 17:51 | disposition home or self-care (01) ==
LOC: EDH 14:17
DX: M19.012 Primary osteoarthritis, left shoulder (principal); G89.29 Other chronic pain; M25.512 Pain in left shoulder; F41.9 Anxiety disorder, unspecified; I10 Essential (primary) hypertension; Z79.899 Other long term (current) drug therapy; Z88.5 Allergy status to narcotic agent; Z88.6 Allergy status to analgesic agent; Z90.49 Acquired absence of other specified parts of digestive tract
CPT/HCPCS: 99283; 73030; 96372; J1100

== ENCOUNTER 2025-05-30 07:14 | Emergency (ER) | payer MEDICAID ==
[~2025-05-30] VITALS: Ht 149.9 cm; Wt 78.2 kg
[~2025-05-30 07:14] MED LIST changes: +PRED20TA3 PO
--- NOTE | 2025-05-30 07:27 | ERN ---
General Chief Complaint: Dizzy/Light Headed Stated Complaint: DIZZY Time Seen by MD: 07:17 Source: patient History of Present Illness Initial Comments Patient is a 59-year-old female coming with multiple complaints. Patient states that she has been having lower extremity pain. She also states that she does has a history of bilateral knee replacement. Long with this she states that she started a new medication for blood pressure and has been taking medication for weight loss. Patient states he felt a little weak today and decided to come in for further evaluation. Allergies: Coded Allergies: ibuprofen (Unverified Allergy, Unknown, 02/26/19) tramadol (Unverified Allergy, Unknown, 02/26/19) Home Meds Active Scripts Prednisone (Prednisone) 20 Mg Tablet, 1 TAB PO AD for 6 Days, #14 TAB 0 Refills TAKE 1 TAB BY MOUTH THREE TIMES PER DAY X3 DAYS, THEN TAKE 1 TAB BY MOUTH TWICE A DAY X2 DAYS, THEN TAKE 1 TAB BY MOUTH ONCE A DAY X1 DAY. Prov:SURINDER VALDEZ SLICE PLUG CUTTER OPERATOR HELPER 03/27/25 Benzonatate (Benzonatate) 200 Mg Capsule, 200 MG PO TID PRN for COUGH for 14 Days, #42 CAP Prov:TONY OSORIO V COMMUNICATIONS ASSISTANT 10/22/23 Reported Medications Trazodone HCl (Trazodone HCl) 150 Mg Tablet, 150 MG PO HS PRN for SLEEP, TAB 12/02/23 Linaclotide (Linzess) 290 Mcg Capsule, 290 MCG PO AM, CAP 12/02/23 Montelukast Sodium (Singulair 10Mg) 10 Mg Tab, 10 MG PO DAILY, TAB 12/04/20 Atorvastatin Calcium (LIPITOR) 40 Mg Tablet, 40 MG PO DAILY, TAB 12/04/20 Past Medical History Past Medical History: Hypertension, Other Medical History Other: prediabetes Past Surgical History: Other Surgical History Other: right knee total replacement Social History Social History: Negative, Lives with family Female( History) History: Not Applicable ROS Dictation CONSTITUTIONAL: No chills, no fever, no weakness, no diaphoresis, no malaise. HEAD/FACE: No signs of trauma. EENT: No eye pain, no blurred vision, no tearing, no double vision, no ear pain, no ear discharge, no nose pain, no nasal congestion, no throat pain, no throat swelling, no mouth pain. RESPIRATORY: No cough, no orthopnea, no SOB, no stridor, no wheezing. CARDIOVASCULAR: No chest pain, no edema, no palpitations, no syncope. GASTROINTESTINAL/ABDOMINAL: No abdominal pain, no constipation, no diarrhea, no nausea, no vomiting. GENITOURINARY: No abnormal discharge, no dysuria, no frequent urination, no hematuria. No complaints of pain in the genitals. MUSCULOSKELETAL: No back pain, no gout, no joint pain, no joint swelling, no muscle pain, no muscle stiffness, no neck pain. INTEGUMENTARY: No change in color, no change in hair/nails, no dryness, no lesion, no lumps, no rash. NEUROLOGICAL/PSYCH: No anxiety, not depressed, no emotional problem, no headache, no numbness, no pre-existing deficit, no history of seizures, no tremors, no weakness. HEMATOLOGIC/LYMPHATIC: Not anemic, no history of blood clots, no apparent bleeding, no bruising, glands not swollen. All Systems Negative, Except as Noted. Physical Exam Physical Exam Dictation VITAL SIGNS: Reviewed. GENERAL APPEARANCE: Alert, oriented x3, no acute distress, obese. HEAD AND FACE: Non-traumatic. EYES: PERRL, pink conjunctivas, eyelid no trauma, anterior chamber clear. EARS: Pinnas intact and no signs of trauma or erythema. Ear canals clear and no discharge. TMs no erythema. NOSE: No discharge, no bleeding. OROPHARYNX: Mouth normal, teeth no caries, tongue pink. Pharynx clear, no erythema. Tonsils no exudates, no abscesses noted. Mucous membrane moist. NECK: Supple, non-tender, no thyromegaly, no masses, no JVD, no bruits. BREAST: Deferred. CHEST: No tenderness, no crepitus, no paradoxical movement, no retractions. LUNGS: Clear, well-ventilated, symmetric, no rales, no wheezing, no rhonchi, no stridor, good breath sounds bilaterally. HEART: Regular rate, regular rhythm, no murmur, no gallops. VASCULAR: No peripheral edema. ABDOMEN: Soft, positive bowel sounds, nondistended, no guarding, nontender, no rebound, no masses no hepatomegaly, no splenomegaly, no Cochran's sign, no hernias. RECTAL: Deferred. GENITAL: Deferred. NEUROLOGICAL: Normal speech, gross motor function intact, gross sensory function intact. MUSCULOSKELETAL: Neck nontender, full range of motion, back nontender, full range of motion. EXTREMITIES: Nontender, full range of motion. SKIN: Color pink, dry, no turgor, no rash, no lacerations, no abrasions, no contusions. LYMPHATICS: Deferred. Results Laboratory and Microbiology Lab and Micro Result Laboratory Tests Test 05/30/25 07:19 05/30/25 07:40 Urine Color YELLOW (YELLOW) Urine Appearance CLEAR (CLEAR) Urine pH 5.5 (5.0-8.0) Urine Specific [place] 1.022 (1.001-1.031) Urine Protein NEGATIVE mg/dL (NEGATIVE) Urine Glucose (UA) NEGATIVE mg/dL (NEGATIVE) Urine Ketones NEGATIVE mg/dL (NEGATIVE) Urine Occult Blood MODERATE (NEGATIVE) H Urine Nitrate NEGATIVE (NEGATIVE) Urine Bilirubin NEGATIVE mg/dL (NEGATIVE) Urine Urobilinogen 0.2 mg/dL (0.2-1.0) Urine Leukocyte Esterase 25 Patrick/uL (NEGATIVE) H Urine RBC 2-5 /HPF (0-1) H Urine WBC 2-5 /HPF (0-1) H Urine Squamous Epithelial Cells RARE /HPF (0-2) Urine Bacteria None /HPF (None Seen) White Blood Count 6.1 K/uL (4.8-10.8) Red Blood Count 3.91 MIL/uL (4.00-5.50) L Hemoglobin 12.6 g/dL (12.0-16.0) Hematocrit 38.2 % (36-48) Mean Corpuscular Volume 97.7 fL (79-99) Mean Corpuscular Hemoglobin 32.2 pg (27.0-33.0) Mean Corpuscular Hemoglobin Concent 33.0 g/dL (32.0-36.0) Red Cell Distribution Width 12.6 % (11.0-15.5) Platelet Count 234 K/uL (130-400) Mean Platelet Volume 10.2 fL (7.5-10.5) Immature Granulocyte % (Auto) 0.2 % (0-1) Neutrophils (%) (Auto) 52.4 % (40.0-77.0) Lymphocytes (%) (Auto) 37.5 % (21.0-51.0) Monocytes (%) (Auto) 7.2 % (3.0-13.0) Eosinophils (%) (Auto) 2.0 % (0.0-8.0) Basophils (%) (Auto) 0.7 % (0.0-5.0) Neutrophils # (Auto) 3.2 K/uL (1.8-7.7) Lymphocytes # (Auto) 2.3 K/uL (1.0-4.8) Monocytes # (Auto) 0.4 K/uL (0.1-1.0) Eosinophils # (Auto) 0.12 K/uL (0.00-0.70) Basophils # (Auto) 0.04 K/uL (0.00-0.20) Absolute Immature Granulocyte (auto 0.01 K/uL (0-1) Nucleated Red Blood Cells 0.0 % (0.0-0.19) Sodium Level 143 mmol/L (136-145) Potassium Level 3.7 mmol/L (3.5-5.1) Chloride Level 104 mmol/L (101-111) Carbon Dioxide Level 32 mmol/L (21-32) Blood Urea Nitrogen 10 mg/dL (7-18) Creatinine 0.5 mg/dL (0.5-1.0) Glomerular Filtration Rate Calc 109 mL/min (>90) Random Glucose 103 mg/dL (70-105) Total Calcium 8.9 mg/dL (8.5-10.1) Labs Reviewed?: Yes MDM MDM: Differential diagnosis: UTI, dehydration, chronic knee pain, Rationale: Tests considered and ordered secondary to shared decision making include: Previous outside records reviewed: Old ER visits. Risk of complication and/or morbidity or mortality of patient management: None Medications-Per medication reconciliation Need for hospitalization: Patient does not meet criteria for hospitalization. Need for emergency major/minor surgery: No Patient is a 59-year-old female coming in with multiple complaints. Patient states he started taking a new medication for blood pressure and states he has been taking medication for weight loss. Laboratory workup positive for urinary tract infection. Patient is hydrated IV fluids states he feels better will be discharged in stable condition. ED Course Orders Procedure Category Date Status Time Cbc With Differential LAB 05/30/25 Complete 07:25 Basic Metabolic Panel LAB 05/30/25 Complete 07:25 Urinalysis LAB 05/30/25 Complete W/Microscopic 07:25 12 Lead Ekg Tracing- EKG 05/30/25 Logged Technical 07:27 0.9% Nacl 500ml PHA 05/30/25 In Process Iv.Soln (Ns 500ml 08:30 Current Medications Medications (Trade) Dose Ordered Sig/John Route PRN Reason Start Time Stop Time Status Last Admin Dose Admin Sodium Chloride 500 ml @ 0 mls/hr ONCE ONCE IV 05/30/25 08:30 05/30/25 08:31 Vital Signs Date Time Temp Pulse Resp B/P (MAP) Pulse Ox O2 Delivery O2 Flow Rate FiO2 05/30/25 07:40 98.1 63 14 120/67 100 Room Air* 0 21 05/30/25 07:21 97.9 79 16 125/83 99 Room Air* 0 21 05/30/25 07:19 97.9 79 16 125/83 99 Room Air 0 DX & DISP Disposition: Discharge Departure Impression: Primary Impression: UTI (urinary tract infection) Additional Impressions: Dehydration, Medication side effect Condition: Stable Scripts Capsaicin (Arthritis Pain Relief) 0.1 % Cream..g. 42.5 GM TP BID for 7 Days, #1 TUBE Prov: DAVE SERRANO MD 05/30/25 Cephalexin Monohydrate (Keflex) 500 Mg Cap 1 CAP PO BID for 7 Days, #14 CAP 0 Refills Prov: DAVE SERRANO MD 05/30/25 Additional Instructions: FOLLOW-UP WITH PRIMARY CARE PROVIDER IN 1 TO 2 DAYS. TAKE MEDICATIONS DIRECTED HERE IN THE EMERGENCY ROOM. OKAY TO CONTINUE HOME MEDICATIONS UNLESS OTHERWISE DISCUSSED DURING YOUR VISIT IN THE EMERGENCY ROOM TODAY. RETURN TO YOUR NEAREST EMERGENCY ROOM IF SYMPTOMS WORSEN OR IF THERE IS NO IMPROVEMENT. CALL 911 IF YOU NEED IMMEDIATE ASSISTANCE. TAKE TYLENOL [id number] NEEDED AND IF NO CONTRAINDICATIONS ARE PRESENT. INCREASE ORAL HYDRATION. A WOUND CULTURE OR URINE CULTURE WAS ORDERED HERE IN THE EMERGENCY ROOM DEPARTMENT PLEASE FOLLOW-UP WITH PRIMARY CARE PROVIDER AND ADVISE THEM TO GET REPORTS FROM OUR FACILITY. IF YOU HAD ANY RENE WRAP/SPLINTS THAT WERE APPLIED HERE, PLEASE DO NOT REMOVE THEM UNTIL YOU SEE YOUR PRIMARY CARE OR SPECIALTY. Referrals: Referrals: LYUDMILA VILLATORO MD (PCP) Time of Disposition: 08:23 DAVE SERRANO MD May 30, 2025 07:27
[2025-05-30 07:43] LABS: APPEARANCE,URINE CLEAR (CLEAR); GLUCOSE, URINE (UA) NEGATIVE (NEGATIVE); LEUKOCYTE ESTERASE ,URINE 25 Leu/uL (NEGATIVE); NITRATE,URINE NEGATIVE (NEGATIVE); OCCULT BLOOD,URINE MODERATE (NEGATIVE)
[2025-05-30 07:50] LABS: IMMATURE GRANULOCYTE ABSOLUTE 0.01 K/uL (0-1); NUCLEATED RED BLOOD CELLS 0.0 % (0.0-0.19); PLATELET COUNT (AUTO) 234 K/uL (130-400); RED BLOOD CELL COUNT(AUTO) 3.91 MIL/uL (4.00-5.50); RED CELL DISTRIBUTION WIDTH 12.6 % (11.0-15.5); WHITE BLOOD COUNT (AUTO) 6.1 K/uL (4.8-10.8)
[2025-05-30 07:51] LABS: SQUAMOUS EPITHELIAL CELL,UR RARE /HPF (0-2)
[2025-05-30 07:59] LABS: CREATININE 0.5 mg/dL (0.5-1.0); GLOMERULAR FILTR. RATE CALC 109.0 mL/min (>90); GLUCOSE,RANDOM 103.0 mg/dL (70-105); SODIUM SERUM 143.0 mmol/L (136-145); UREA NITROGEN, BLOOD 10.0 mg/dL (7-18)
[2025-05-30] MEDS ORDERED: CEPH500B PO (08:24)
[2025-05-30] MEDS ORDERED: [UNRECOGNIZED DRUG - CODE] TP (08:27)
[2025-05-30] MEDS: ORPHENADRINE 60MG/2ML IM ONE (08:35)
[2025-05-30] MEDS: 0.9% NACL 500ML IV.SOLN 500 ML IV ONE (08:35)
--- NOTE | 2025-05-30 08:54 | EKG ---
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
[2025-05-30 09:24] VITALS: BP 122/70; PULSE 56; RESP 17; TEMP 97.9; O2SAT 99
== END 2025-05-30 09:22 | disposition home or self-care (01) ==
LOC: EDH 07:14
DX: N39.0 Urinary tract infection, site not specified (principal); E86.0 Dehydration; I10 Essential (primary) hypertension; Z79.899 Other long term (current) drug therapy; Z88.5 Allergy status to narcotic agent; Z88.6 Allergy status to analgesic agent; Z96.653 Presence of artificial knee joint, bilateral
CPT/HCPCS: 99284; 96360; 80048; 85025; 81001; 36415; 93005; 96372; J7040; J2360

== ENCOUNTER 2025-07-01 18:43 | Emergency (ER) | payer MEDICAID ==
[~2025-07-01] VITALS: Ht 149.9 cm; Wt 77.1 kg
[~2025-07-01 18:43] MED LIST changes: +CEPH500B PO; +[UNRECOGNIZED DRUG - CODE] TP
[2025-07-01 19:22] LABS: INFLUENZA TYPE A Negative For Type A (NEGATIVE); INFLUENZA TYPE B Negative For Type B (NEGATIVE)
[2025-07-01 19:28] LABS: COVID19 (SARS ANTIGEN RAPID) POSITIVE FOR SARS AG (NEGATIVE)
--- NOTE | 2025-07-01 19:32 | ERN ---
General Chief Complaint: Other Problems Stated Complaint: COVID POSITIVE Time Seen by MD: 18:47 Time Seen by Midlevel: 18:47 Source: patient History of Present Illness Initial Comments 59-year-old female presents to the ER with flu-like symptoms. Patient was diagnosed with COVID one week ago but was not prescribed any medications. Patient is seeking prescriptions at this time. Allergies: Coded Allergies: ibuprofen (Unverified Allergy, Unknown, 02/26/19) tramadol (Unverified Allergy, Unknown, 02/26/19) Home Meds Active Scripts Capsaicin (Arthritis Pain Relief) 0.1 % Cream..g., 42.5 GM TP BID for 7 Days, #1 TUBE Prov:DAVE SERRANO MD 05/30/25 Cephalexin Monohydrate (Keflex) 500 Mg Cap, 1 CAP PO BID for 7 Days, #14 CAP 0 Refills Prov:DAVE SERRANO MD 05/30/25 Prednisone (Prednisone) 20 Mg Tablet, 1 TAB PO AD for 6 Days, #14 TAB 0 Refills TAKE 1 TAB BY MOUTH THREE TIMES PER DAY X3 DAYS, THEN TAKE 1 TAB BY MOUTH TWICE A DAY X2 DAYS, THEN TAKE 1 TAB BY MOUTH ONCE A DAY X1 DAY. Prov:SURINDER VADLEZ COMMUNICATION ARTS LECTURER 03/27/25 Benzonatate (Benzonatate) 200 Mg Capsule, 200 MG PO TID PRN for COUGH for 14 Days, #42 CAP Prov:TONY OSORIO V DIRECTOR OF PRODUCT MARKETING 10/22/23 Reported Medications Trazodone HCl (Trazodone HCl) 150 Mg Tablet, 150 MG PO HS PRN for SLEEP, TAB 12/02/23 Linaclotide (Linzess) 290 Mcg Capsule, 290 MCG PO AM, CAP 12/02/23 Montelukast Sodium (Singulair 10Mg) 10 Mg Tab, 10 MG PO DAILY, TAB 12/04/20 Atorvastatin Calcium (LIPITOR) 40 Mg Tablet, 40 MG PO DAILY, TAB 12/04/20 Past Medical History Past Medical History: Hypertension, Other Medical History Other: prediabetes Past Surgical History: Other Surgical History Other: right knee total replacement Social History Social History: Negative, Lives with family Female( History) History: Not Applicable ROS Dictation CONSTITUTIONAL: Negative except for HPI HEAD/FACE: Negative except for HPI EENT: Negative except for HPI RESPIRATORY: Negative except for HPI GASTROINTESTINAL/ABDOMINAL: Negative except for HPI GENITOURINARY: Negative except for HPI MUSCULOSKELETAL: Negative except for HPI INTEGUMENTARY: Negative except for HPI NEUROLOGICAL/PSYCH: Negative except for HPI HEMATOLOGIC/LYMPHATIC: Negative except for HPI All Systems Negative, Except as noted above. 13 point review of systems assessed and all negative except for above. Physical Exam Physical Exam Dictation Vital Signs reviewed General Appearance: Alert, oriented x 3, no acute distress, well developed, nourished. Head and Face: non-traumatic. Eyes: PERRL, pink conjunctivas, eyelid no trauma, anterior chamber with arcus senilis. Ears: Pinnas intact and no signs of trauma or erythema ear canals clear and no discharge TM no erythema Nose: No discharge, no bleeding. Oropharynx: Mouth normal, tongue pink, pharynx clear,no erythema, tonsils no exudates, no abscesses noted, mucous membrane moist Neck: Supple, non-tender, no thyromegaly, no masses, no JVD, no bruits Breast:Deferred Chest:No tenderness, no crepitus, no paradoxical movement, no retractions Lungs:Clear, well-ventilated, symmetric, no rales, no wheezing, no rhonchi, no stridor, good breath sounds bilaterally Heart: Regular rate, regular rhythm, no murmur, no gallops Vascular: no peripheral edema, Abdomen: Soft, positive bowel sounds, nondistended, no guarding, nontender, no rebound, no masses no hepatomegaly, no splenomegaly, no Cochran's sign, no hernias. Rectal: Deferred Genital: Deferred Neurological: Normal speech, motor function intact, sensory function intact Musculoskeletal: Neck nontender, full range of motion, back nontender, full range of motion, Extremities: nontender, full range of motion Skin: Color pink, dry, no turgor, no rash, no lacerations, no abrasions, no contusions. Lymphatic: Deferred Results Laboratory and Microbiology Lab and Micro Result Laboratory Tests Test 07/01/25 18:48 Influenza Type A Antigen Negative For Type A Influenza Type B Antigen Negative For Type B SARS-CoV-2 Antigen (Rapid) POSITIVE FOR SARS AG MDM MDM: Differential diagnosis: Viral illness, upper respiratory infection, pneumonia There are no social concerns with this patient. Prescription drug management Prescriptions will include: Paxlovid Medical management and examination interpretation discussions were had by me with other qualified healthcare professionals as indicated for the patient's care. ED Course Orders Procedure Category Date Status Time Covid19 (Sars Antigen LAB 07/01/25 Complete Rapid) 18:47 Influenza Type A & B, LAB 07/01/25 Complete Rapid 18:47 Chest 1vw RAD 07/01/25 Taken 19:23 Ketorolac PHA 07/01/25 Complete Tromethamine 15mg/Ml 19:30 Dexamethasone 10mg/Ml PHA 07/01/25 Complete 1ml Vial (Dexameth 19:30 Current Medications Medications (Trade) Dose Ordered Sig/John Route PRN Reason Start Time Stop Time Status Last Admin Dose Admin Dexamethasone Sodium Phosphate (dexaMETHasone 10MG/ML 1ML VIAL) 10 mg ONCE ONCE IM 07/01/25 19:30 07/01/25 19:31 DC 07/01/25 19:53 Ketorolac Tromethamine (toRADol) 15 mg ONCE ONCE IM 07/01/25 19:30 07/01/25 19:31 DC 07/01/25 19:53 Vital Signs Date Time Temp Pulse Resp B/P (MAP) Pulse Ox O2 Delivery O2 Flow Rate FiO2 07/01/25 18:51 97.9 88 16 131/91 97 Room Air* 0 21 07/01/25 18:44 97.9 88 16 131/91 97 Room Air DX & DISP Disposition: Discharge Departure Impression: Primary Impression: COVID-19 virus infection Condition: Stable Scripts Nirmatrelvir/Ritonavir (Paxlovid 150-100 mg (Moderate)) 150 Mg (10)-100 Mg (10) Tab.ds.pk 1 EACH PO BID for 5 Days, #10 PACK Prov: ADRIANA ALBERTS 07/01/25 Referrals: LYUDMILA VILLATORO MD (PCP) Time of Disposition: 20:44 I have reviewed the case, and I agree with, Diagnosis and Plan I performed the substantive portion of the visit. I have reviewed and gareth galarza made and approve the management plan that is documented in the note by myself or the JERRI. I acknowledge for responsibility for the patient's management plan. ADRIANA ALBERTS Jul 01, 2025 19:32
[2025-07-01] MEDS ORDERED: NIRM1TAB13 PO (20:45)
--- NOTE | 2025-07-01 20:46 | HMCIMG ---
EXAM: CR Chest, 1 View. CLINICAL HISTORY: back pain COMPARISON: None provided. FINDINGS: LUNGS: There is no mass, infiltrate, or acute pulmonary abnormality. PLEURAL SPACES: No evidence of pleural effusion or pneumothorax. MEDIASTINUM: The cardiomediastinal silhouette is within normal limits. BONES: No acute osseous abnormality. IMPRESSION: No acute cardiopulmonary pathology is evident. /[place]
[2025-07-01 20:47] VITALS: BP 127/84; PULSE 82; RESP 16; TEMP 97.9; O2SAT 97
== END 2025-07-01 20:48 | disposition home or self-care (01) ==
LOC: EDH 18:43
DX: U07.1 COVID-19 (principal); I10 Essential (primary) hypertension; Z79.899 Other long term (current) drug therapy; Z88.5 Allergy status to narcotic agent; Z88.6 Allergy status to analgesic agent; Z96.651 Presence of right artificial knee joint
CPT/HCPCS: 99284; 71045; 87426; 87804 ×2; 96372 ×2; J1885; J1100

== ENCOUNTER → 2025-08-22 | Outpatient (CLI) | payer MEDICAID ==
[~2025-08-22] MED LIST changes: +NIRM1TAB13 PO
--- NOTE | 2025-08-23 13:23 | HMCIMG ---
DIGITAL BILATERAL SCREENING MAMMOGRAM Technique: The digital mammographic examination of both breasts in craniocaudal and mediolateral oblique views along with CAD was obtained. History: This is a 60 years year-old female 4, para4 Ab0. Patient has paternal aunt with family history of breast cancer. Patient has no complaint Reference:Prior mammogram from 08/05/2024 is available.. Breast composition: Breast composition C: The breasts are heterogeneously dense, which may obscure small masses. Finding: The digital mammographic examination of both breasts in craniocaudal and mediolateral oblique view along with CAD demonstrates both breasts to be moderately heterogeneously dense due to fibroglandular stromal elements.. There is no evidence of any dendritic mass, cluster microcalcification or architectural distortion. The retromammary fat appears to be normal. IMPRESSION: Unchanged from prior mammography. NO RADIOGRAPHIC EVIDENCE OF MALIGNANT CHANGES. WE WOULD RECOMMEND ANNUAL FOLLOW UP WITH TOMOSYNTHESIS UNLESS OTHERWISE CLINICALLY INDICATED. FINAL ASSESSMENT: ACR: BI-RAD- 2. Benign Finding. NOTE: IF A WORK-UP OF THIS PATIENT LEADS TO A BIOPSY, PLEASE FORWARD A COPY OF THE PATHOLOGY REPORT TO OUR OFFICE REQUIRED BY SA EFFECTIVE JULY 12, 1994. A NEGATIVE MAMMOGRAM SHOULD NOT PRECLUDE BIOPSY OF A CLINICALLY PALPABLE SUSPICIOUS MASS, 10% OF BREAST CANCERS ARE MAMMOGRAPHICALLY OCCULT. THIS MAMMOGRAPHY FACILITY IS FULLY ACCREDITED BY THE FOOD AND DRUG ADMINISTRATION (FDA). THANK YOU FOR THIS REFERRAL.
== END | disposition home or self-care (01) ==
LOC: RAH 11:26
PROVIDERS: ATTEND Family Medicine
DX: Z12.31 Encounter for screening mammogram for malignant neoplasm of breast (principal); R92.333 Mammographic heterogeneous density, bilateral breasts
CPT/HCPCS: 77067